=== PATIENT | male | born 1965 | race Caucasian/White ===

== ENCOUNTER 2018-07-18 15:40 | Inpatient (IN) | payer MEDICAID, OTHER ==
[~2018-07-18] VITALS: Ht 180.3 cm; Wt 127.9 kg
[~2018-07-18 15:40] MED LIST: METF-444 PO; RISP0.252 PO
[2018-07-18 16:16] LABS: BASOPHILS % (AUTO) 0.7 % (0.0-2.0); EOSINOPHILS % (AUTO) 1.4 % (1.0-6.0); HEMATOCRIT 43.2 % (41-53); HEMOGLOBIN 15.1 g/dL (13.5-17.5); LYMPHOCYTES # (AUTO) 1.3 K/uL (1.0-4.8); LYMPHOCYTES % (AUTO) 11.5 % (22.0-44.0); MEAN CORPUSCULAR HEMOGLOBIN 29.1 pg (26.0-34.0); MEAN CORPUSCULAR HGB CONC 34.9 G/dL (31.0-37.0); MEAN CORPUSCULAR VOLUME 83 fL (80-100); MONOCYTES # (AUTO) 1.1 K/uL (0.1-1.0); MONOCYTES % (AUTO) 9.5 % (2.0-9.0); NEUTROPHILS # (AUTO) 8.8 K/uL (1.8-7.7); NEUTROPHILS % (AUTO) 76.9 % (40.0-70.0); PLATELET COUNT (AUTO) 245 K/uL (150-450); RED BLOOD CELL COUNT(AUTO) 5.18 MIL/uL (4.50-5.90); RED CELL DISTRIBUTION WIDTH 13.2 % (11.5-14.5)
[2018-07-18 16:25] LABS: ANION GAP 8 mmol/L (8-16); CALCIUM, TOTAL 8.8 mg/dL (8.8-10.5); CARBON DIOXIDE 26 mmol/L (22-29); CHLORIDE 95 mmol/L (98-107); CREATININE 0.97 mg/dL (0.60-1.30); GLOMERULAR FILTR. RATE CALC > 60 mL/min (>60); GLUCOSE,RANDOM 220 mg/dL (70-110); POTASSIUM 3.9 mmol/L (3.5-5.1); SODIUM SERUM 129 mmol/L (136-145); UREA NITROGEN, BLOOD 11 mg/dL (7-18)
[2018-07-18 16:30] LABS: ALANINE AMINOTRANSFERASE 67 U/L (12-78); ALBUMIN 3.8 g/dL (3.4-5.0); ALKALINE PHOSPHATASE 87 U/L (46-116); ASPARTATE AMINOTRANSFERASE 26 U/L (15-37); BILIRUBIN,TOTAL 0.5 mg/dL (0.1-1.0); TOTAL PROTEIN, SERUM 7.6 g/dL (6.4-8.2)
[2018-07-18 17:10] LABS: AMPHET/METH SCREEN,URINE POSITIVE (NEGATIVE); BARBITURATE SCREEN, URINE NEGATIVE (NEGATIVE); BENZODIAZEPINES SCREEN,URINE NEGATIVE (NEGATIVE); CANNABINOID SCREEN,URINE NEGATIVE (NEGATIVE); COCAINE SCREEN,URINE NEGATIVE (NEGATIVE); METHADONE SCREEN, URINE NEGATIVE (NEGATIVE); OPIATE SCREEN,URINE NEGATIVE (NEGATIVE)
[2018-07-18 17:16] LABS: PHENCYCLIDINE SCREEN,URINE NEGATIVE (NEGATIVE)
[2018-07-18] MEDS ORDERED: OLANZapine 5 MG TABLET PO ONE (17:45)
[2018-07-18] MEDS ORDERED: LORazepam 2 MG TABLET PO ONE (17:45)
[2018-07-18] MEDS ORDERED: SODIUM CHLORIDE 1 GM TABLET PO ONE (17:45)
[2018-07-18 18:48] LABS: ANION GAP 10 mmol/L (8-16); CALCIUM, TOTAL 8.2 mg/dL (8.8-10.5); CARBON DIOXIDE 27 mmol/L (22-29); CHLORIDE 99 mmol/L (98-107); CREATININE 1.01 mg/dL (0.60-1.30); GLOMERULAR FILTR. RATE CALC > 60 mL/min (>60); GLUCOSE,RANDOM 238 mg/dL (70-110); POTASSIUM 3.7 mmol/L (3.5-5.1); SODIUM SERUM 136 mmol/L (136-145); UREA NITROGEN, BLOOD 12 mg/dL (7-18)
[2018-07-18] MEDS ORDERED: OLANZapine 5 MG RAPDIS TABLET PO PRN (19:30)
[2018-07-18] MEDS ORDERED: ZOLPIDEM TARTRATE 10 MG TABLET PO PRN (19:30)
[2018-07-18] MEDS ORDERED: LORazepam 2 MG TABLET PO PRN (19:30)
[2018-07-18] MEDS ORDERED: PETROLATUM,WHITE 71 GM JELLY TP PRN (21:15)
[2018-07-18] MEDS ORDERED: GuaiFENesin/D-METHORPHAN [SUGAR-FREE] 200-20MG/10 ML SYRUP UDCUP PO PRN (21:15)
[2018-07-18] MEDS ORDERED: ACETAMINOPHEN 325 MG TABLET PO PRN (21:15)
[2018-07-18] MEDS ORDERED: NICOTINE 14 MG/24 HOUR PATCH TD PRN (21:15)
[2018-07-18] MEDS ORDERED: IBUPROFEN 400 MG TABLET PO PRN (21:15)
[2018-07-18] MEDS ORDERED: DOCUSATE SODIUM 100 MG CAPSULE PO PRN (21:15)
[2018-07-18] MEDS ORDERED: ALBUTEROL SULFATE HFA 90 MCG/PUFF 8 GM INHALER IH PRN (21:15)
[2018-07-18] MEDS ORDERED: LOPERAMIDE HCL 2 MG CAPSULE PO PRN (21:15)
[2018-07-18] MEDS ORDERED: ONDANSETRON HCL 4 MG TABLET PO PRN (21:15)
[2018-07-18] MEDS ORDERED: MAG HYDROX/AL HYDROX/SIMETH ES 30 ML SUSPENSION UDCUP PO PRN (21:15)
[2018-07-18] MEDS ORDERED: CloNIDine HCL 0.1 MG TABLET PO PRN (21:15)
[2018-07-18 21:46] VITALS: BP 137/74
[2018-07-18] MEDS: MetFORMIN HCL 500 MG TABLET PO SCH (21:52)
[2018-07-18 21:58] VITALS: BP 137/74
[2018-07-18] MEDS ORDERED: PNEUMOCOCCAL VACCINE POLYVALENT 0.5 ML VIAL [PPSV23] IM ONE (23:00)
[2018-07-19 06:32] LABS: HEMOGLOBIN A1C 9.1 % (4.5-6.2)
[2018-07-19] MEDS: MetFORMIN HCL 500 MG TABLET PO SCH ×2 (06:51→17:51)
[2018-07-19 07:19] LABS: ALANINE AMINOTRANSFERASE 49 U/L (12-78); ALBUMIN 2.9 g/dL (3.4-5.0); ALKALINE PHOSPHATASE 69 U/L (46-116); ANION GAP 6 mmol/L (8-16); ASPARTATE AMINOTRANSFERASE 20 U/L (15-37); CALCIUM, TOTAL 8.1 mg/dL (8.8-10.5); CARBON DIOXIDE 28 mmol/L (22-29); CHLORIDE 101 mmol/L (98-107); CHOL/HDL RATIO 4.4 (4.2-7.3); CHOLESTEROL 169 mg/dL (131-200); CREATININE 0.91 mg/dL (0.60-1.30); GLOMERULAR FILTR. RATE CALC > 60 mL/min (>60); GLUCOSE,RANDOM 200 mg/dL (70-110); HDL CHOLESTEROL 38 mg/dL (40-60); LDL CHOL (CALC.) 86 mg/dL (0-130); POTASSIUM 3.8 mmol/L (3.5-5.1); SODIUM SERUM 135 mmol/L (136-145); THYROID STIMULATING HORMONE 3.67 uIU/mL (0.36-3.74); TOTAL PROTEIN, SERUM 6.1 g/dL (6.4-8.2); TRIGLYCERIDES 224 mg/dL (15-150); UREA NITROGEN, BLOOD 13 mg/dL (7-18)
[2018-07-19 07:37] LABS: BILIRUBIN,TOTAL 0.5 mg/dL (0.1-1.0)
[2018-07-19 09:08] VITALS: BP 159/100
[2018-07-19] MEDS: ARIPiprazole 10 MG TABLET PO SCH (13:06)
[2018-07-19 14:36] LABS: GLUCOMETER DEV NAME(LOC) 3EI C; GLUCOSE,POINT OF CARE 246 MG/DL (70-110)
[2018-07-19] MEDS: HYPROMELLOSE 0.5% 15 ML OPHTHALMIC SOLUTION OU SCH (17:51)
[2018-07-19 20:00] VITALS: BP 140/65
[2018-07-19] MEDS: MAGNESIUM HYDROXIDE SUSPENSION 30 ML UDCUP PO PRN (20:25)
[2018-07-20] MEDS: MetFORMIN HCL 500 MG TABLET PO SCH ×2 (07:03→16:39)
[2018-07-20] MEDS: AmLODIPine BESYLATE 2.5 MG TABLET PO SCH (09:59)
[2018-07-20] MEDS: HYPROMELLOSE 0.5% 15 ML OPHTHALMIC SOLUTION OU SCH ×2 (09:59→16:39)
[2018-07-20] MEDS: ARIPiprazole 10 MG TABLET PO SCH (09:59)
[2018-07-20 10:08] VITALS: BP 161/98
[2018-07-20 20:21] VITALS: BP 145/78
[2018-07-21] MEDS: MetFORMIN HCL 500 MG TABLET PO SCH ×2 (06:49→16:31)
[2018-07-21 08:05] VITALS: BP 144/67
[2018-07-21 09:54] LABS: GLUCOSE,POINT OF CARE 199 MG/DL (70-110)
[2018-07-21] MEDS: ARIPiprazole 10 MG TABLET PO SCH (10:29)
[2018-07-21] MEDS: AmLODIPine BESYLATE 2.5 MG TABLET PO SCH (10:29)
[2018-07-21] MEDS: HYPROMELLOSE 0.5% 15 ML OPHTHALMIC SOLUTION OU SCH ×2 (10:30→16:31)
[2018-07-21] MEDS: MAGNESIUM HYDROXIDE SUSPENSION 30 ML UDCUP PO PRN (16:32)
[2018-07-21 17:18] VITALS: BP 145/95
[2018-07-22 05:56] VITALS: BP 143/85
[2018-07-22] MEDS ORDERED: HYPROMELLOSE 0.5% 15 ML OPHTHALMIC SOLUTION OU PRN (06:30)
[2018-07-22] MEDS: MetFORMIN HCL 500 MG TABLET PO SCH (07:07)
[2018-07-22] MEDS: ARIPiprazole 10 MG TABLET PO SCH (09:49)
[2018-07-22] MEDS: AmLODIPine BESYLATE 2.5 MG TABLET PO SCH (09:49)
[2018-07-22] MEDS ORDERED: ARIP10TA8 PO (13:33)
[2018-07-22] MEDS ORDERED: AMLO2.5T3 PO (13:34)
== END 2018-07-22 16:10 | disposition home or self-care (01) | DRG 750 ==
LOC: EMS 15:41 → 3EI 19:30
DX: F20.0 Paranoid schizophrenia (principal); E87.1 Hypo-osmolality and hyponatremia; R45.851 Suicidal ideations; F10.10 Alcohol abuse, uncomplicated; E78.5 Hyperlipidemia, unspecified; I10 Essential (primary) hypertension; F19.10 Other psychoactive substance abuse, uncomplicated; F15.10 Other stimulant abuse, uncomplicated; E11.9 Type 2 diabetes mellitus without complications; Z87.891 Personal history of nicotine dependence; Z59.0 Homelessness; Z91.5 Personal history of self-harm; Z71.41 Alcohol abuse counseling and surveillance of alcoholic; Z71.51 Drug abuse counseling and surveillance of drug abuser
CPT/HCPCS: 83036; 84443; 99285; G0480

== ENCOUNTER 2018-10-27 16:04 | Inpatient (IN) | payer MEDICAID, SELFPAY ==
[~2018-10-27] VITALS: Ht 180.3 cm; Wt 132.9 kg
[~2018-10-27 16:04] MED LIST changes: +AMLO2.5T4 PO; +ARIP10TA8 PO; -RISP0.252 PO
[2018-10-27] MEDS ORDERED: LISI-662 PO (16:13)
[2018-10-27] MEDS ORDERED: INSLAN SQ (16:13)
[2018-10-27 16:57] LABS: BASOPHILS % (AUTO) 1.1 % (0.0-2.0); EOSINOPHILS % (AUTO) 5.3 % (1.0-6.0); HEMOGLOBIN 14.1 g/dL (13.5-17.5); LYMPHOCYTES # (AUTO) 1.1 K/uL (1.0-4.8); LYMPHOCYTES % (AUTO) 14.7 % (22.0-44.0); MEAN CORPUSCULAR HEMOGLOBIN 28.6 pg (26.0-34.0); MEAN CORPUSCULAR HGB CONC 34.5 G/dL (31.0-37.0); MEAN CORPUSCULAR VOLUME 83 fL (80-100); MONOCYTES # (AUTO) 0.8 K/uL (0.1-1.0); MONOCYTES % (AUTO) 9.7 % (2.0-9.0); NEUTROPHILS # (AUTO) 5.4 K/uL (1.8-7.7); NEUTROPHILS % (AUTO) 69.2 % (40.0-70.0); PLATELET COUNT (AUTO) 215 K/uL (150-450); RED BLOOD CELL COUNT(AUTO) 4.93 MIL/uL (4.50-5.90); RED CELL DISTRIBUTION WIDTH 13.8 % (11.5-14.5)
[2018-10-27 17:07] LABS: ANION GAP 5 mmol/L (8-16); CALCIUM, TOTAL 8.9 mg/dL (8.8-10.5); CARBON DIOXIDE 31 mmol/L (22-29); CHLORIDE 100 mmol/L (98-107); GLOMERULAR FILTR. RATE CALC > 60 mL/min (>60); GLUCOSE,RANDOM 169 mg/dL (70-110); SODIUM SERUM 136 mmol/L (136-145); UREA NITROGEN, BLOOD 11 mg/dL (7-18)
[2018-10-27 17:13] LABS: ALANINE AMINOTRANSFERASE 56 U/L (12-78); ALBUMIN 3.6 g/dL (3.4-5.0); ALKALINE PHOSPHATASE 57 U/L (46-116); ASPARTATE AMINOTRANSFERASE 23 U/L (15-37); BILIRUBIN,TOTAL 0.4 mg/dL (0.1-1.0); TOTAL PROTEIN, SERUM 6.9 g/dL (6.4-8.2)
[2018-10-27 18:17] LABS: AMPHET/METH SCREEN,URINE NEGATIVE (NEGATIVE); BARBITURATE SCREEN, URINE NEGATIVE (NEGATIVE); BENZODIAZEPINES SCREEN,URINE NEGATIVE (NEGATIVE); CANNABINOID SCREEN,URINE NEGATIVE (NEGATIVE); COCAINE SCREEN,URINE NEGATIVE (NEGATIVE); METHADONE SCREEN, URINE NEGATIVE (NEGATIVE); OPIATE SCREEN,URINE NEGATIVE (NEGATIVE)
[2018-10-27 18:20] LABS: PHENCYCLIDINE SCREEN,URINE NEGATIVE (NEGATIVE)
[2018-10-27] MEDS ORDERED: HALOPERIDOL 5 MG TABLET PO ONE (23:15)
[2018-10-27] MEDS ORDERED: LORazepam 2 MG TABLET PO ONE (23:15)
[2018-10-27] MEDS ORDERED: DiphenhydrAMINE HCL 25 MG CAPSULE PO ONE (23:15)
[2018-10-27] MEDS ORDERED: LORazepam 2 MG TABLET PO PRN (23:30)
[2018-10-27] MEDS ORDERED: ZOLPIDEM TARTRATE 10 MG TABLET PO PRN (23:30)
[2018-10-27] MEDS ORDERED: HALOPERIDOL 5 MG TABLET PO PRN (23:30)
[2018-10-28 02:45] VITALS: BP 162/91
[2018-10-28 09:18] LABS: CHOL/HDL RATIO 3.1 (4.2-7.3); CHOLESTEROL 159 mg/dL (131-200); FREE T4 (FREE THYROXINE) 0.89 ng/dL (0.76-1.46); HDL CHOLESTEROL 51 mg/dL (40-60); LDL CHOL (CALC.) 81 mg/dL (0-130); TRIGLYCERIDES 137 mg/dL (15-150)
[2018-10-28 09:33] LABS: HEMOGLOBIN A1C 9.2 % (4.5-6.2)
[2018-10-28] MEDS ORDERED: HydrOXYzine PAMOATE 50 MG CAPSULE PO PRN (12:15)
[2018-10-28] MEDS ORDERED: MAG HYDROX/AL HYDROX/SIMETH ES 30 ML SUSPENSION UDCUP PO PRN (12:15)
[2018-10-28] MEDS ORDERED: MAGNESIUM HYDROXIDE SUSPENSION 30 ML UDCUP PO PRN (12:15)
[2018-10-28] MEDS ORDERED: OLANZapine 5 MG RAPDIS TABLET PO PRN (12:15)
[2018-10-28] MEDS ORDERED: TUBERCULIN, PURIFIED PROTEIN DERIVATIVE 5 TU/0.1 ML SYG ID ONE (12:15)
[2018-10-28] MEDS ORDERED: ACETAMINOPHEN 325 MG TABLET PO PRN (12:15)
[2018-10-28] MEDS ORDERED: GuaiFENesin/D-METHORPHAN [SUGAR-FREE] 200-20MG/10 ML SYRUP UDCUP PO PRN (12:15)
[2018-10-28] MEDS ORDERED: PROMETHAZINE HCL 25 MG TABLET PO PRN (12:15)
[2018-10-28] MEDS ORDERED: DEXTROSE 50%-WATER 25 GM/50 ML SYRINGE IVP PRN (13:00)
[2018-10-28] MEDS ORDERED: INSULIN GLARGINE,HUM.REC.ANLOG 100 UNITS/ML SQ ONE (13:00)
[2018-10-28] MEDS ORDERED: GLUCAGON,HUMAN RECOMBINANT 1 MG VIAL IM PRN (13:00)
[2018-10-28] MEDS ORDERED: INSULIN LISPRO 100 UNITS/ML SQ PRN (13:00)
[2018-10-28] MEDS: LISINOPRIL 10 MG TABLET PO SCH (13:47)
[2018-10-28 14:06] LABS: GLUCOMETER DEV NAME(LOC) 3E.C; GLUCOSE,POINT OF CARE 324 MG/DL (70-110)
[2018-10-28 14:46] VITALS: BP 116/56
[2018-10-28 15:54] LABS: GLUCOSE,POINT OF CARE 200 MG/DL (70-110)
[2018-10-28 16:00] VITALS: BP 119/69
[2018-10-28] MEDS: THIAMINE HCL 100 MG TABLET PO SCH (17:00)
[2018-10-28] MEDS: INSULIN LISPRO 100 UNITS/ML SQ PRN (19:02)
[2018-10-28] MEDS ORDERED: OLANZapine 5 MG RAPDIS TABLET PO SCH (21:00)
[2018-10-28] MEDS ORDERED: INSULIN GLARGINE,HUM.REC.ANLOG 100 UNITS/ML SQ SCH (21:00)
[2018-10-28] MEDS ORDERED: DIVALPROEX SODIUM 500 MG ER TABLET PO SCH (21:00)
[2018-10-28] MEDS: LOPERAMIDE HCL 2 MG CAPSULE PO PRN (21:03)
[2018-10-28] MEDS: HYPROMELLOSE 0.5% 15 ML OPHTHALMIC SOLUTION OU PRN (21:03)
[2018-10-29] MEDS: HYPROMELLOSE 0.5% 15 ML OPHTHALMIC SOLUTION OU PRN ×2 (02:32→05:51)
[2018-10-29 05:51] VITALS: BP 135/78
[2018-10-29] MEDS: LOPERAMIDE HCL 2 MG CAPSULE PO PRN (05:51)
[2018-10-29] MEDS: INSULIN LISPRO 100 UNITS/ML SQ PRN ×2 (06:31→11:42)
[2018-10-29] MEDS: THIAMINE HCL 100 MG TABLET PO SCH (08:48)
[2018-10-29] MEDS: LISINOPRIL 10 MG TABLET PO SCH (08:48)
[2018-10-29 08:52] LABS: GLUCOMETER DEV NAME(LOC) 3E.C; GLUCOSE,POINT OF CARE 262 MG/DL (70-110)
[2018-10-29 08:55] VITALS: BP 125/72
[2018-10-29 08:57] LABS: GLUCOMETER DEV NAME(LOC) 3E.C; GLUCOSE,POINT OF CARE 304 MG/DL (70-110)
[2018-10-29] MEDS ORDERED: FOLIC ACID 1 MG TABLET PO SCH (09:00)
[2018-10-29] MEDS ORDERED: MULTIVITAMINS WITH MINERALS, THERAPEUTIC TABLET PO SCH (09:00)
[2018-10-29] MEDS ORDERED: NALTREXONE HCL 50 MG TABLET PO SCH (09:00)
[2018-10-29 09:35] LABS: GLUCOMETER DEV NAME(LOC) 3E.C; GLUCOSE,POINT OF CARE 261 MG/DL (70-110)
[2018-10-29 11:44] LABS: GLUCOMETER DEV NAME(LOC) 3E.C; GLUCOSE,POINT OF CARE 264 MG/DL (70-110)
[2018-10-29] MEDS ORDERED: PALI117D IM (12:57)
[2018-10-29] MEDS ORDERED: DIVA500T52 PO (12:57)
[2018-10-29] MEDS ORDERED: NALT50TA PO (12:57)
[2018-10-29] MEDS ORDERED: PALIPERIDONE PALMITATE 234 MG/1.5 ML SYRINGE IM ONE (13:00)
[2018-10-29 16:19] LABS: GLUCOMETER DEV NAME(LOC) 3E.C; GLUCOSE,POINT OF CARE 344 MG/DL (70-110)
[2018-11-26] MEDS ORDERED: PALIPERIDONE PALMITATE 117 MG/0.75 ML SYRINGE IM SCH (09:00)
== END 2018-10-29 17:00 | disposition home or self-care (01) | DRG 750 ==
LOC: EMS 16:05 → 3EC 23:30
PROVIDERS: ADMIT Psychiatry & Neurology Psychiatry; ATTEND Psychiatry & Neurology Psychiatry
DX: F25.9 Schizoaffective disorder, unspecified (principal); R45.850 Homicidal ideations; E11.9 Type 2 diabetes mellitus without complications; I10 Essential (primary) hypertension; F12.90 Cannabis use, unspecified, uncomplicated; F17.210 Nicotine dependence, cigarettes, uncomplicated; H04.123 Dry eye syndrome of bilateral lacrimal glands; Z79.4 Long term (current) use of insulin; Z80.0 Family history of malignant neoplasm of digestive organs; Z80.1 Family history of malignant neoplasm of trachea, bronchus and lung; Z80.42 Family history of malignant neoplasm of prostate; Z82.49 Family history of ischemic heart disease and other diseases of the circulatory system; Z91.19 Patient's noncompliance with other medical treatment and regimen; Z59.0 Homelessness
CPT/HCPCS: 83036; 84436; 84439; 99406; G0480; J1815

== ENCOUNTER 2018-12-06 16:27 | Inpatient (IN) | payer MEDICAID ==
[~2018-12-06] VITALS: Ht 180.3 cm; Wt 125.6 kg
[~2018-12-06 16:27] MED LIST changes: -AMLO2.5T4 PO; -ARIP10TA8 PO; +DIVA500T52 PO; +INSLAN SQ; +LISI-662 PO; -METF-444 PO; +NALT50TA PO; +PALI117D IM
[2018-12-06 16:54] LABS: GLUCOSE,POINT OF CARE 472 MG/DL (70-110)
[2018-12-06 20:09] LABS: GLUCOSE,POINT OF CARE 436 MG/DL (70-110)
[2018-12-06 21:05] LABS: EOSINOPHILS % (AUTO) 3.8 % (1.0-6.0); HEMATOCRIT 41.9 % (41-53); HEMOGLOBIN 14.8 g/dL (13.5-17.5); LYMPHOCYTES # (AUTO) 1.4 K/uL (1.0-4.8); LYMPHOCYTES % (AUTO) 18.2 % (22.0-44.0); MEAN CORPUSCULAR HEMOGLOBIN 29.2 pg (26.0-34.0); MEAN CORPUSCULAR HGB CONC 35.2 G/dL (31.0-37.0); MEAN CORPUSCULAR VOLUME 83 fL (80-100); MONOCYTES # (AUTO) 0.8 K/uL (0.1-1.0); MONOCYTES % (AUTO) 9.9 % (2.0-9.0); NEUTROPHILS # (AUTO) 5.2 K/uL (1.8-7.7); NEUTROPHILS % (AUTO) 67.1 % (40.0-70.0); PLATELET COUNT (AUTO) 217 K/uL (150-450); RED BLOOD CELL COUNT(AUTO) 5.06 MIL/uL (4.50-5.90); RED CELL DISTRIBUTION WIDTH 13.7 % (11.5-14.5)
[2018-12-06] MEDS ORDERED: INSULIN REGULAR, HUMAN 100 UNITS/ML SQ ONE (21:15)
[2018-12-06 21:22] LABS: ANION GAP 13 mmol/L (8-16); CALCIUM, TOTAL 9.3 mg/dL (8.8-10.5); CARBON DIOXIDE 26 mmol/L (22-29); CHLORIDE 95 mmol/L (98-107); CREATININE 0.99 mg/dL (0.60-1.30); GLOMERULAR FILTR. RATE CALC > 60 mL/min (>60); GLUCOSE,RANDOM 365 mg/dL (70-110); POTASSIUM 4.3 mmol/L (3.5-5.1); SODIUM SERUM 134 mmol/L (136-145); UREA NITROGEN, BLOOD 12 mg/dL (7-18)
[2018-12-06 21:26] LABS: ALANINE AMINOTRANSFERASE 66 U/L (12-78); ALBUMIN 3.9 g/dL (3.4-5.0); ALKALINE PHOSPHATASE 73 U/L (46-116); ASPARTATE AMINOTRANSFERASE 22 U/L (15-37); BILIRUBIN,TOTAL 0.6 mg/dL (0.1-1.0); TOTAL PROTEIN, SERUM 7.4 g/dL (6.4-8.2)
[2018-12-06 22:42] LABS: APPEARANCE,URINE CLEAR (CLEAR); BILIRUBIN,URINE NEGATIVE (NEGATIVE); GLUCOSE, URINE (UA) >=1000 mg/dL (NEGATIVE); KETONES,URINE NEGATIVE (NEGATIVE); LEUKOCYTE ESTERASE ,URINE NEGATIVE (NEGATIVE); NITRATE,URINE NEGATIVE (NEGATIVE); OCCULT BLOOD,URINE NEGATIVE (NEGATIVE); PH,URINE 5.5 (5.0-8.0); PROTEIN,URINE NEGATIVE (NEGATIVE); UROBILINOGEN,URINE 0.2 mg/dL (<=1.0)
[2018-12-06 22:49] LABS: BACTERIA,URINE None Seen /HPF (None Seen); RBC,URINE None Seen /HPF (0-2); SQUAMOUS EPITHELIAL CELL,UR None Seen /LPF (None Seen); WBC,URINE None Seen /HPF (0-5)
[2018-12-06 23:13] LABS: GLUCOSE,POINT OF CARE 264 MG/DL (70-110)
[2018-12-07] MEDS ORDERED: LORazepam 2 MG TABLET PO ONE (07:45)
[2018-12-07] MEDS ORDERED: DiphenhydrAMINE HCL 25 MG CAPSULE PO ONE (07:45)
[2018-12-07] MEDS ORDERED: HALOPERIDOL 5 MG TABLET PO ONE (07:45)
[2018-12-07] MEDS ORDERED: INSULIN REGULAR, HUMAN 100 UNITS/ML SQ ONE (08:00)
[2018-12-07 09:20] VITALS: BP 149/89
[2018-12-07 09:25] LABS: VALPROIC ACID < 3 mcg/mL (50-100)
[2018-12-07] MEDS ORDERED: ZOLPIDEM TARTRATE 10 MG TABLET PO PRN (09:45)
[2018-12-07] MEDS ORDERED: LORazepam 2 MG TABLET PO PRN (09:45)
[2018-12-07] MEDS ORDERED: QUEtiapine FUMARATE 100 MG TABLET PO PRN (09:45)
[2018-12-07] MEDS ORDERED: CloNIDine HCL 0.1 MG TABLET PO PRN ×2 (10:00→18:00)
[2018-12-07] MEDS ORDERED: GuaiFENesin/D-METHORPHAN [SUGAR-FREE] 200-20MG/10 ML SYRUP UDCUP PO PRN ×2 (10:00→18:00)
[2018-12-07] MEDS ORDERED: NICOTINE 14 MG/24 HOUR PATCH TD PRN ×2 (10:00→18:00)
[2018-12-07] MEDS ORDERED: LOPERAMIDE HCL 2 MG CAPSULE PO PRN ×2 (10:00→18:00)
[2018-12-07] MEDS ORDERED: MAGNESIUM HYDROXIDE SUSPENSION 30 ML UDCUP PO PRN ×2 (10:00→18:00)
[2018-12-07] MEDS ORDERED: ONDANSETRON HCL 4 MG TABLET PO PRN ×2 (10:00→18:00)
[2018-12-07] MEDS ORDERED: PETROLATUM,WHITE 71 GM JELLY TP PRN ×2 (10:00→18:00)
[2018-12-07] MEDS ORDERED: ALBUTEROL SULFATE HFA 90 MCG/PUFF 8 GM INHALER IH PRN ×2 (10:00→18:00)
[2018-12-07] MEDS ORDERED: MAG HYDROX/AL HYDROX/SIMETH ES 30 ML SUSPENSION UDCUP PO PRN ×2 (10:00→18:00)
[2018-12-07] MEDS ORDERED: DOCUSATE SODIUM 100 MG CAPSULE PO PRN ×2 (10:00→18:00)
[2018-12-07] MEDS ORDERED: ACETAMINOPHEN 325 MG TABLET PO PRN ×2 (10:00→18:00)
[2018-12-07] MEDS ORDERED: LISINOPRIL 10 MG TABLET PO ONE (10:15)
[2018-12-07] MEDS ORDERED: LISI-661 PO (10:54)
[2018-12-07] MEDS ORDERED: PNEUMOCOCCAL VACCINE POLYVALENT 0.5 ML VIAL [PPSV23] IM ONE (11:00)
[2018-12-07 16:26] VITALS: BP 104/67
[2018-12-07] MEDS ORDERED: IBUPROFEN 400 MG TABLET PO PRN (18:00)
[2018-12-07] MEDS ORDERED: GLUCAGON,HUMAN RECOMBINANT 1 MG VIAL IM PRN (18:00)
[2018-12-07] MEDS: QUEtiapine FUMARATE 100 MG TABLET PO SCH (20:15)
[2018-12-07] MEDS: DIVALPROEX SODIUM 500 MG ER TABLET PO SCH (20:15)
[2018-12-07] MEDS: INSULIN GLARGINE,HUM.REC.ANLOG 100 UNITS/ML SQ SCH (20:19)
[2018-12-07] MEDS: INSULIN LISPRO 100 UNITS/ML SQ PRN (20:19)
[2018-12-07] MEDS ORDERED: INSULIN GLARGINE,HUM.REC.ANLOG 100 UNITS/ML SQ SCH (21:00)
[2018-12-07 22:43] LABS: GLUCOMETER DEV NAME(LOC) BV3N.; GLUCOSE,POINT OF CARE 387 MG/DL (70-110)
[2018-12-08 02:03] VITALS: BP 126/69
[2018-12-08] MEDS: MetFORMIN HCL 500 MG TABLET PO SCH ×2 (06:24→16:48)
[2018-12-08 06:28] LABS: GLUCOMETER DEV NAME(LOC) BV3N.; GLUCOSE,POINT OF CARE 261 MG/DL (70-110)
[2018-12-08] MEDS: INSULIN LISPRO 100 UNITS/ML SQ PRN ×4 (06:42→21:12)
[2018-12-08 07:25] LABS: BASOPHILS % (AUTO) 0.9 % (0.0-2.0); EOSINOPHILS % (AUTO) 4.6 % (1.0-6.0); HEMATOCRIT 40.1 % (41-53); HEMOGLOBIN 14.2 g/dL (13.5-17.5); LYMPHOCYTES # (AUTO) 1.2 K/uL (1.0-4.8); LYMPHOCYTES % (AUTO) 20.9 % (22.0-44.0); MEAN CORPUSCULAR HGB CONC 35.5 G/dL (31.0-37.0); MEAN CORPUSCULAR VOLUME 82 fL (80-100); MONOCYTES # (AUTO) 0.6 K/uL (0.1-1.0); MONOCYTES % (AUTO) 9.6 % (2.0-9.0); NEUTROPHILS # (AUTO) 3.7 K/uL (1.8-7.7); PLATELET COUNT (AUTO) 168 K/uL (150-450); RED BLOOD CELL COUNT(AUTO) 4.91 MIL/uL (4.50-5.90); RED CELL DISTRIBUTION WIDTH 13.3 % (11.5-14.5)
[2018-12-08 07:37] LABS: HEMOGLOBIN A1C 9.4 % (4.5-6.2)
[2018-12-08 07:55] LABS: ALANINE AMINOTRANSFERASE 59 U/L (12-78); ALBUMIN 3.1 g/dL (3.4-5.0); ALKALINE PHOSPHATASE 61 U/L (46-116); ANION GAP 6 mmol/L (8-16); ASPARTATE AMINOTRANSFERASE 30 U/L (15-37); BILIRUBIN,TOTAL 0.4 mg/dL (0.1-1.0); CALCIUM, TOTAL 8.4 mg/dL (8.8-10.5); CARBON DIOXIDE 30 mmol/L (22-29); CHLORIDE 100 mmol/L (98-107); CHOL/HDL RATIO 3.4 (4.2-7.3); CHOLESTEROL 150 mg/dL (131-200); CREATININE 0.98 mg/dL (0.60-1.30); FREE T4 (FREE THYROXINE) 1.06 ng/dL (0.76-1.46); GLOMERULAR FILTR. RATE CALC > 60 mL/min (>60); GLUCOSE,RANDOM 267 mg/dL (70-110); HDL CHOLESTEROL 44 mg/dL (40-60); LDL CHOL (CALC.) 66 mg/dL (0-130); SODIUM SERUM 136 mmol/L (136-145); THYROID STIMULATING HORMONE 1.53 uIU/mL (0.36-3.74); TOTAL PROTEIN, SERUM 6.4 g/dL (6.4-8.2); TRIGLYCERIDES 198 mg/dL (15-150); UREA NITROGEN, BLOOD 14 mg/dL (7-18)
[2018-12-08] MEDS: NICOTINE 14 MG/24 HOUR PATCH TD SCH (08:16)
[2018-12-08 08:20] VITALS: BP 136/65
[2018-12-08 11:59] LABS: GLUCOMETER DEV NAME(LOC) BV3N.; GLUCOSE,POINT OF CARE 292 MG/DL (70-110)
[2018-12-08 16:00] VITALS: BP 125/76
[2018-12-08 16:58] LABS: GLUCOMETER DEV NAME(LOC) BV3N.; GLUCOSE,POINT OF CARE 344 MG/DL (70-110)
[2018-12-08] MEDS: QUEtiapine FUMARATE 100 MG TABLET PO SCH (21:00)
[2018-12-08] MEDS: DIVALPROEX SODIUM 500 MG ER TABLET PO SCH (21:00)
[2018-12-08 21:09] LABS: GLUCOMETER DEV NAME(LOC) BV3N.; GLUCOSE,POINT OF CARE 287 MG/DL (70-110)
[2018-12-08] MEDS: INSULIN GLARGINE,HUM.REC.ANLOG 100 UNITS/ML SQ SCH (21:12)
[2018-12-09] MEDS: HYPROMELLOSE 0.5% 15 ML OPHTHALMIC SOLUTION OU PRN ×3 (02:46→16:08)
[2018-12-09 03:38] VITALS: BP 124/87
[2018-12-09 06:29] LABS: GLUCOMETER DEV NAME(LOC) BV3N.; GLUCOSE,POINT OF CARE 218 MG/DL (70-110)
[2018-12-09] MEDS: MetFORMIN HCL 500 MG TABLET PO SCH ×2 (06:37→16:07)
[2018-12-09] MEDS: INSULIN LISPRO 100 UNITS/ML SQ PRN ×4 (06:47→21:00)
[2018-12-09 08:08] VITALS: BP 136/67
[2018-12-09] MEDS: NICOTINE 14 MG/24 HOUR PATCH TD SCH (08:32)
[2018-12-09 11:34] LABS: GLUCOMETER DEV NAME(LOC) BV3N.; GLUCOSE,POINT OF CARE 257 MG/DL (70-110)
[2018-12-09 11:42] VITALS: BP 140/82
[2018-12-09] MEDS: IBUPROFEN 400 MG TABLET PO PRN (11:42)
[2018-12-09 15:48] LABS: GLUCOMETER DEV NAME(LOC) BV3N.; GLUCOSE,POINT OF CARE 284 MG/DL (70-110)
[2018-12-09 16:28] VITALS: BP 139/75
[2018-12-09] MEDS: DIVALPROEX SODIUM 500 MG ER TABLET PO SCH (21:00)
[2018-12-09] MEDS: QUEtiapine FUMARATE 100 MG TABLET PO SCH (21:00)
[2018-12-09] MEDS: INSULIN GLARGINE,HUM.REC.ANLOG 100 UNITS/ML SQ SCH (21:00)
[2018-12-09 21:19] LABS: GLUCOMETER DEV NAME(LOC) BV3N.; GLUCOSE,POINT OF CARE 256 MG/DL (70-110)
[2018-12-10 02:56] VITALS: BP 118/64
[2018-12-10] MEDS: MetFORMIN HCL 500 MG TABLET PO SCH ×2 (06:52→16:43)
[2018-12-10] MEDS: INSULIN LISPRO 100 UNITS/ML SQ PRN ×4 (06:54→20:25)
[2018-12-10 07:09] LABS: GLUCOMETER DEV NAME(LOC) BV3N.; GLUCOSE,POINT OF CARE 215 MG/DL (70-110)
[2018-12-10] MEDS: NICOTINE 14 MG/24 HOUR PATCH TD SCH (08:11)
[2018-12-10 08:12] VITALS: BP 105/59
[2018-12-10 11:39] LABS: GLUCOMETER DEV NAME(LOC) BV3N.; GLUCOSE,POINT OF CARE 264 MG/DL (70-110)
[2018-12-10 16:08] VITALS: BP 127/68
[2018-12-10] MEDS: HYPROMELLOSE 0.5% 15 ML OPHTHALMIC SOLUTION OU PRN (16:43)
[2018-12-10 17:03] LABS: GLUCOMETER DEV NAME(LOC) BV3N.; GLUCOSE,POINT OF CARE 299 MG/DL (70-110)
[2018-12-10] MEDS: QUEtiapine FUMARATE 100 MG TABLET PO SCH (20:23)
[2018-12-10] MEDS: DIVALPROEX SODIUM 500 MG ER TABLET PO SCH (20:23)
[2018-12-10] MEDS: INSULIN GLARGINE,HUM.REC.ANLOG 100 UNITS/ML SQ SCH (20:25)
[2018-12-10 20:54] LABS: GLUCOMETER DEV NAME(LOC) BV3N.; GLUCOSE,POINT OF CARE 292 MG/DL (70-110)
[2018-12-11 00:28] VITALS: BP 129/89
[2018-12-11] MEDS: INSULIN LISPRO 100 UNITS/ML SQ PRN ×4 (06:28→20:32)
[2018-12-11 06:29] LABS: GLUCOMETER DEV NAME(LOC) BV3N.; GLUCOSE,POINT OF CARE 198 MG/DL (70-110)
[2018-12-11] MEDS: MetFORMIN HCL 500 MG TABLET PO SCH ×2 (06:37→16:53)
[2018-12-11 08:13] VITALS: BP 113/62
[2018-12-11] MEDS: NICOTINE 14 MG/24 HOUR PATCH TD SCH ×2 (09:00→09:20)
[2018-12-11 11:53] LABS: GLUCOMETER DEV NAME(LOC) BV3N.; GLUCOSE,POINT OF CARE 276 MG/DL (70-110)
[2018-12-11] MEDS: HYPROMELLOSE 0.5% 15 ML OPHTHALMIC SOLUTION OU PRN (12:08)
[2018-12-11] MEDS: IBUPROFEN 400 MG TABLET PO PRN ×2 (13:15→13:51)
[2018-12-11 13:51] VITALS: BP 126/60
[2018-12-11 16:18] VITALS: BP 121/67
[2018-12-11 17:08] LABS: GLUCOMETER DEV NAME(LOC) BV3N.; GLUCOSE,POINT OF CARE 306 MG/DL (70-110)
[2018-12-11] MEDS: DIVALPROEX SODIUM 500 MG ER TABLET PO SCH (20:31)
[2018-12-11] MEDS: INSULIN GLARGINE,HUM.REC.ANLOG 100 UNITS/ML SQ SCH (20:32)
[2018-12-11 20:58] LABS: GLUCOMETER DEV NAME(LOC) BV3N.; GLUCOSE,POINT OF CARE 257 MG/DL (70-110)
[2018-12-11] MEDS ORDERED: ARIPiprazole 10 MG TABLET PO SCH (21:00)
[2018-12-12] MEDS: HYPROMELLOSE 0.5% 15 ML OPHTHALMIC SOLUTION OU PRN (05:15)
[2018-12-12 06:16] VITALS: BP 121/69
[2018-12-12 06:24] LABS: GLUCOMETER DEV NAME(LOC) BV3N.; GLUCOSE,POINT OF CARE 251 MG/DL (70-110)
[2018-12-12] MEDS: MetFORMIN HCL 500 MG TABLET PO SCH (06:28)
[2018-12-12] MEDS: INSULIN LISPRO 100 UNITS/ML SQ PRN ×2 (06:38→11:30)
[2018-12-12 08:00] VITALS: BP 135/67
[2018-12-12] MEDS: NICOTINE 14 MG/24 HOUR PATCH TD SCH (08:22)
[2018-12-12 11:43] LABS: GLUCOMETER DEV NAME(LOC) BV3N.; GLUCOSE,POINT OF CARE 256 MG/DL (70-110)
[2018-12-12] MEDS ORDERED: INSULIN GLARGINE,HUM.REC.ANLOG 100 UNITS/ML SQ SCH (21:00)
== END 2018-12-12 13:30 | disposition home or self-care (01) | DRG 750 ==
LOC: EMS 16:27 → B3A 12-07 06:11
DX: F25.9 Schizoaffective disorder, unspecified (principal); E11.65 Type 2 diabetes mellitus with hyperglycemia; R45.851 Suicidal ideations; F17.210 Nicotine dependence, cigarettes, uncomplicated; F32.9 Major depressive disorder, single episode, unspecified; F41.9 Anxiety disorder, unspecified; F60.9 Personality disorder, unspecified; I10 Essential (primary) hypertension; Z79.899 Other long term (current) drug therapy; Z91.14 Patient's other noncompliance with medication regimen; Z91.5 Personal history of self-harm; Z71.6 Tobacco abuse counseling
CPT/HCPCS: 83036; 84439; 84443; 96372; G0480; J1815

== ENCOUNTER 2018-12-15 12:54 | Inpatient (IN) | payer MEDICAID ==
[~2018-12-15] VITALS: Ht 180.3 cm; Wt 128.3 kg
[~2018-12-15 12:54] MED LIST changes: -INSLAN SQ; +LISI-661 PO; -LISI-662 PO; -PALI117D IM
[2018-12-15 15:08] LABS: BASOPHILS % (AUTO) 0.9 % (0.0-2.0); EOSINOPHILS % (AUTO) 2.6 % (1.0-6.0); HEMATOCRIT 39.7 % (41-53); HEMOGLOBIN 14.3 g/dL (13.5-17.5); LYMPHOCYTES # (AUTO) 1.2 K/uL (1.0-4.8); LYMPHOCYTES % (AUTO) 14.4 % (22.0-44.0); MEAN CORPUSCULAR HEMOGLOBIN 29.4 pg (26.0-34.0); MEAN CORPUSCULAR HGB CONC 35.9 G/dL (31.0-37.0); MEAN CORPUSCULAR VOLUME 82 fL (80-100); MONOCYTES # (AUTO) 0.8 K/uL (0.1-1.0); MONOCYTES % (AUTO) 9.5 % (2.0-9.0); NEUTROPHILS # (AUTO) 6.2 K/uL (1.8-7.7); NEUTROPHILS % (AUTO) 72.6 % (40.0-70.0); PLATELET COUNT (AUTO) 185 K/uL (150-450); RED BLOOD CELL COUNT(AUTO) 4.85 MIL/uL (4.50-5.90); RED CELL DISTRIBUTION WIDTH 13.7 % (11.5-14.5)
[2018-12-15 15:22] LABS: ANION GAP 9 mmol/L (8-16); CALCIUM, TOTAL 9.1 mg/dL (8.8-10.5); CARBON DIOXIDE 27 mmol/L (22-29); CHLORIDE 95 mmol/L (98-107); CREATININE 1.05 mg/dL (0.60-1.30); GLOMERULAR FILTR. RATE CALC > 60 mL/min (>60); GLUCOSE,RANDOM 300 mg/dL (70-110); POTASSIUM 4.4 mmol/L (3.5-5.1); SODIUM SERUM 131 mmol/L (136-145); UREA NITROGEN, BLOOD 20 mg/dL (7-18)
[2018-12-15 15:28] LABS: ALANINE AMINOTRANSFERASE 76 U/L (12-78); ALBUMIN 3.6 g/dL (3.4-5.0); ALKALINE PHOSPHATASE 61 U/L (46-116); ASPARTATE AMINOTRANSFERASE 36 U/L (15-37); BILIRUBIN,TOTAL 0.5 mg/dL (0.1-1.0); TOTAL PROTEIN, SERUM 7.1 g/dL (6.4-8.2)
[2018-12-15 16:04] LABS: AMPHET/METH SCREEN,URINE NEGATIVE (NEGATIVE); BARBITURATE SCREEN, URINE NEGATIVE (NEGATIVE); BENZODIAZEPINES SCREEN,URINE NEGATIVE (NEGATIVE); CANNABINOID SCREEN,URINE NEGATIVE (NEGATIVE); COCAINE SCREEN,URINE NEGATIVE (NEGATIVE); METHADONE SCREEN, URINE NEGATIVE (NEGATIVE); OPIATE SCREEN,URINE NEGATIVE (NEGATIVE)
[2018-12-15 16:09] LABS: PHENCYCLIDINE SCREEN,URINE NEGATIVE (NEGATIVE)
[2018-12-15 16:16] LABS: APPEARANCE,URINE CLEAR (CLEAR); BILIRUBIN,URINE NEGATIVE (NEGATIVE); GLUCOSE, URINE (UA) >=1000 mg/dL (NEGATIVE); KETONES,URINE TRACE mg/dL (NEGATIVE); LEUKOCYTE ESTERASE ,URINE NEGATIVE (NEGATIVE); NITRATE,URINE NEGATIVE (NEGATIVE); OCCULT BLOOD,URINE NEGATIVE (NEGATIVE); PROTEIN,URINE NEGATIVE (NEGATIVE); UROBILINOGEN,URINE 0.2 mg/dL (<=1.0)
[2018-12-15 16:52] LABS: BACTERIA,URINE None Seen /HPF (None Seen); RBC,URINE None Seen /HPF (0-2); SQUAMOUS EPITHELIAL CELL,UR None Seen /LPF (None Seen); WBC,URINE None Seen /HPF (0-5)
[2018-12-15] MEDS ORDERED: ZOLPIDEM TARTRATE 10 MG TABLET PO PRN (17:15)
[2018-12-15] MEDS ORDERED: HALOPERIDOL 5 MG TABLET PO PRN (17:15)
[2018-12-15] MEDS ORDERED: LORazepam 2 MG TABLET PO PRN (17:15)
[2018-12-15 20:04] VITALS: BP 139/87
[2018-12-15 20:33] LABS: GLUCOMETER DEV NAME(LOC) BV2X.; GLUCOSE,POINT OF CARE 362 MG/DL (70-110)
[2018-12-15] MEDS ORDERED: MAGNESIUM HYDROXIDE SUSPENSION 30 ML UDCUP PO PRN (21:30)
[2018-12-15] MEDS ORDERED: GuaiFENesin/D-METHORPHAN [SUGAR-FREE] 200-20MG/10 ML SYRUP UDCUP PO PRN (21:30)
[2018-12-15] MEDS ORDERED: LOPERAMIDE HCL 2 MG CAPSULE PO PRN (21:30)
[2018-12-15] MEDS ORDERED: GLUCAGON,HUMAN RECOMBINANT 1 MG VIAL IM PRN (21:30)
[2018-12-15] MEDS ORDERED: CloNIDine HCL 0.1 MG TABLET PO PRN (21:30)
[2018-12-15] MEDS ORDERED: ACETAMINOPHEN 325 MG TABLET PO PRN (21:30)
[2018-12-15] MEDS ORDERED: ONDANSETRON HCL 4 MG TABLET PO PRN (21:30)
[2018-12-15] MEDS ORDERED: MAG HYDROX/AL HYDROX/SIMETH ES 30 ML SUSPENSION UDCUP PO PRN (21:30)
[2018-12-15] MEDS ORDERED: ALBUTEROL SULFATE HFA 90 MCG/PUFF 8 GM INHALER IH PRN (21:30)
[2018-12-15] MEDS ORDERED: DOCUSATE SODIUM 100 MG CAPSULE PO PRN (21:30)
[2018-12-15] MEDS ORDERED: IBUPROFEN 400 MG TABLET PO PRN (21:30)
[2018-12-15] MEDS ORDERED: PETROLATUM,WHITE 71 GM JELLY TP PRN (21:30)
[2018-12-15] MEDS ORDERED: NICOTINE 14 MG/24 HOUR PATCH TD PRN (21:30)
[2018-12-15] MEDS: INSULIN LISPRO 100 UNITS/ML SQ PRN (21:47)
[2018-12-16 04:15] VITALS: BP 127/89
[2018-12-16 06:09] LABS: GLUCOMETER DEV NAME(LOC) BV2X.; GLUCOSE,POINT OF CARE 302 MG/DL (70-110)
[2018-12-16] MEDS: MetFORMIN HCL 500 MG TABLET PO SCH ×2 (06:09→16:18)
[2018-12-16] MEDS: INSULIN LISPRO 100 UNITS/ML SQ PRN ×4 (06:11→22:15)
[2018-12-16 08:18] VITALS: BP 116/60
[2018-12-16 08:52] LABS: BASOPHILS % (AUTO) 0.8 % (0.0-2.0); EOSINOPHILS % (AUTO) 3.9 % (1.0-6.0); HEMATOCRIT 38.9 % (41-53); HEMOGLOBIN 13.7 g/dL (13.5-17.5); LYMPHOCYTES # (AUTO) 1.1 K/uL (1.0-4.8); LYMPHOCYTES % (AUTO) 18.3 % (22.0-44.0); MEAN CORPUSCULAR HEMOGLOBIN 28.9 pg (26.0-34.0); MEAN CORPUSCULAR HGB CONC 35.1 G/dL (31.0-37.0); MEAN CORPUSCULAR VOLUME 82 fL (80-100); MONOCYTES # (AUTO) 0.7 K/uL (0.1-1.0); MONOCYTES % (AUTO) 11.8 % (2.0-9.0); NEUTROPHILS # (AUTO) 3.8 K/uL (1.8-7.7); NEUTROPHILS % (AUTO) 65.2 % (40.0-70.0); PLATELET COUNT (AUTO) 161 K/uL (150-450); RED BLOOD CELL COUNT(AUTO) 4.73 MIL/uL (4.50-5.90); RED CELL DISTRIBUTION WIDTH 13.7 % (11.5-14.5)
[2018-12-16 09:11] LABS: HEMOGLOBIN A1C 9.5 % (4.5-6.2)
[2018-12-16 09:47] LABS: ALANINE AMINOTRANSFERASE 56 U/L (12-78); ALKALINE PHOSPHATASE 54 U/L (46-116); ANION GAP 6 mmol/L (8-16); ASPARTATE AMINOTRANSFERASE 19 U/L (15-37); BILIRUBIN,TOTAL 0.4 mg/dL (0.1-1.0); CALCIUM, TOTAL 8.5 mg/dL (8.8-10.5); CARBON DIOXIDE 28 mmol/L (22-29); CHLORIDE 98 mmol/L (98-107); CHOL/HDL RATIO 3.9 (4.2-7.3); CHOLESTEROL 173 mg/dL (131-200); CREATININE 0.88 mg/dL (0.60-1.30); GLOMERULAR FILTR. RATE CALC > 60 mL/min (>60); GLUCOSE,RANDOM 297 mg/dL (70-110); HDL CHOLESTEROL 44 mg/dL (40-60); LDL CHOL (CALC.) 99 mg/dL (0-130); POTASSIUM 4.5 mmol/L (3.5-5.1); SODIUM SERUM 132 mmol/L (136-145); THYROID STIMULATING HORMONE 2.52 uIU/mL (0.36-3.74); TOTAL PROTEIN, SERUM 5.8 g/dL (6.4-8.2); TRIGLYCERIDES 152 mg/dL (15-150); UREA NITROGEN, BLOOD 18 mg/dL (7-18)
[2018-12-16 11:24] LABS: GLUCOMETER DEV NAME(LOC) BV2X.; GLUCOSE,POINT OF CARE 334 MG/DL (70-110)
[2018-12-16 16:00] VITALS: BP 118/60
[2018-12-16 17:10] LABS: GLUCOMETER DEV NAME(LOC) BV2X.; GLUCOSE,POINT OF CARE 330 MG/DL (70-110)
[2018-12-16] MEDS: DIVALPROEX SODIUM 500 MG ER TABLET PO SCH ×2 (19:52→21:00)
[2018-12-16] MEDS: OLANZapine 10 MG TABLET PO SCH (19:52)
[2018-12-16] MEDS: INSULIN GLARGINE,HUM.REC.ANLOG 100 UNITS/ML SQ SCH (21:15)
[2018-12-16 21:44] LABS: GLUCOMETER DEV NAME(LOC) BV2X.; GLUCOSE,POINT OF CARE 351 MG/DL (70-110)
[2018-12-17 00:53] VITALS: BP 113/63
[2018-12-17 06:30] LABS: GLUCOMETER DEV NAME(LOC) BV2X.; GLUCOSE,POINT OF CARE 288 MG/DL (70-110)
[2018-12-17] MEDS: MetFORMIN HCL 500 MG TABLET PO SCH ×2 (07:29→16:46)
[2018-12-17] MEDS: INSULIN LISPRO 100 UNITS/ML SQ PRN ×4 (07:30→21:29)
[2018-12-17] MEDS: LISINOPRIL 10 MG TABLET PO SCH (08:31)
[2018-12-17] MEDS: NALTREXONE HCL 50 MG TABLET PO SCH (09:00)
[2018-12-17 09:08] VITALS: BP 118/64
[2018-12-17 11:03] LABS: GLUCOMETER DEV NAME(LOC) BV2X.; GLUCOSE,POINT OF CARE 359 MG/DL (70-110)
[2018-12-17 16:44] VITALS: BP 106/61
[2018-12-17 16:59] LABS: GLUCOMETER DEV NAME(LOC) BV2X.; GLUCOSE,POINT OF CARE 346 MG/DL (70-110)
[2018-12-17 18:20] VITALS: BP 116/71
[2018-12-17] MEDS: DIVALPROEX SODIUM 500 MG ER TABLET PO SCH (21:00)
[2018-12-17] MEDS: OLANZapine 10 MG TABLET PO SCH (21:19)
[2018-12-17] MEDS: INSULIN GLARGINE,HUM.REC.ANLOG 100 UNITS/ML SQ SCH (21:28)
[2018-12-17 22:54] LABS: GLUCOMETER DEV NAME(LOC) BV2S.; GLUCOSE,POINT OF CARE 301 MG/DL (70-110)
[2018-12-18 00:20] VITALS: BP 115/66
[2018-12-18] MEDS: MetFORMIN HCL 500 MG TABLET PO SCH ×2 (06:47→16:10)
[2018-12-18] MEDS: INSULIN LISPRO 100 UNITS/ML SQ PRN ×4 (06:54→20:53)
[2018-12-18 06:59] LABS: GLUCOMETER DEV NAME(LOC) BV2X.; GLUCOSE,POINT OF CARE 246 MG/DL (70-110)
[2018-12-18 08:32] VITALS: BP 119/81
[2018-12-18] MEDS: LISINOPRIL 10 MG TABLET PO SCH (08:32)
[2018-12-18 08:52] LABS: ANION GAP 6 mmol/L (8-16); CALCIUM, TOTAL 8.6 mg/dL (8.8-10.5); CARBON DIOXIDE 29 mmol/L (22-29); CHLORIDE 99 mmol/L (98-107); CREATININE 0.76 mg/dL (0.60-1.30); GLOMERULAR FILTR. RATE CALC > 60 mL/min (>60); GLUCOSE,RANDOM 260 mg/dL (70-110); POTASSIUM 4.3 mmol/L (3.5-5.1); SODIUM SERUM 134 mmol/L (136-145); UREA NITROGEN, BLOOD 16 mg/dL (7-18)
[2018-12-18] MEDS: NALTREXONE HCL 50 MG TABLET PO SCH (09:00)
[2018-12-18] MEDS ORDERED: OMEGA-3/DHA/EPA/FISH OIL 1,000 MG CAPSULE PO SCH (09:00)
[2018-12-18 14:49] LABS: GLUCOMETER DEV NAME(LOC) BV2X.; GLUCOSE,POINT OF CARE 279 MG/DL (70-110)
[2018-12-18 16:07] VITALS: BP 135/78
[2018-12-18 18:03] LABS: GLUCOMETER DEV NAME(LOC) BV2X.; GLUCOSE,POINT OF CARE 267 MG/DL (70-110)
[2018-12-18] MEDS: OLANZapine 10 MG TABLET PO SCH (20:41)
[2018-12-18] MEDS: DIVALPROEX SODIUM 500 MG ER TABLET PO SCH (20:41)
[2018-12-18] MEDS ORDERED: INSULIN GLARGINE,HUM.REC.ANLOG 100 UNITS/ML SQ SCH (21:00)
[2018-12-19 00:32] VITALS: BP 126/72
[2018-12-19 01:08] LABS: GLUCOMETER DEV NAME(LOC) BV2X.; GLUCOSE,POINT OF CARE 276 MG/DL (70-110)
[2018-12-19] MEDS ORDERED: OMEG-135 PO (05:25)
[2018-12-19] MEDS ORDERED: NALT50TA6 PO (05:25)
[2018-12-19] MEDS ORDERED: INSLAN SQ (05:25)
[2018-12-19] MEDS ORDERED: OLAN10TA3 PO (05:25)
[2018-12-19] MEDS ORDERED: LISI-661 PO (05:25)
[2018-12-19] MEDS ORDERED: DIVA500T52 PO (05:25)
[2018-12-19] MEDS ORDERED: METF-960 PO (05:25)
[2018-12-19] MEDS: MetFORMIN HCL 500 MG TABLET PO SCH (06:41)
[2018-12-19] MEDS: INSULIN LISPRO 100 UNITS/ML SQ PRN (06:42)
[2018-12-19 06:59] LABS: GLUCOMETER DEV NAME(LOC) BV2X.; GLUCOSE,POINT OF CARE 193 MG/DL (70-110)
== END 2018-12-19 07:15 | disposition home or self-care (01) | DRG 750 ==
LOC: EMS 12:55 → B2S 17:56 → UNDOADMIN 18:07
DX: F20.0 Paranoid schizophrenia (principal); R45.851 Suicidal ideations; E87.1 Hypo-osmolality and hyponatremia; E11.9 Type 2 diabetes mellitus without complications; F32.9 Major depressive disorder, single episode, unspecified; F41.9 Anxiety disorder, unspecified; F17.200 Nicotine dependence, unspecified, uncomplicated; Z72.89 Other problems related to lifestyle; I10 Essential (primary) hypertension; Z79.899 Other long term (current) drug therapy
CPT/HCPCS: 83036; 84443; 87081; G0480; J1610; J1815

== ENCOUNTER 2019-06-17 20:09 | Inpatient (IN) | payer MEDICAID, OTHER ==
[~2019-06-17] VITALS: Ht 180.3 cm; Wt 127.9 kg
[~2019-06-17 20:09] MED LIST changes: +INSLAN SQ; +METF-960 PO; -NALT50TA PO; +NALT50TA6 PO; +OLAN10TA3 PO; +OMEG-135 PO
[2019-06-17 21:47] LABS: BASOPHILS % (AUTO) 0.6 % (0.0-2.0); EOSINOPHILS % (AUTO) 3.3 % (1.0-6.0); HEMATOCRIT 41.4 % (41-53); HEMOGLOBIN 13.8 g/dL (13.5-17.5); LYMPHOCYTES # (AUTO) 1.2 K/uL (1.0-4.8); LYMPHOCYTES % (AUTO) 13.4 % (22.0-44.0); MEAN CORPUSCULAR HEMOGLOBIN 28.5 pg (26.0-34.0); MEAN CORPUSCULAR HGB CONC 33.4 G/dL (31.0-37.0); MEAN CORPUSCULAR VOLUME 85 fL (80-100); MONOCYTES # (AUTO) 0.6 K/uL (0.1-1.0); MONOCYTES % (AUTO) 7.3 % (2.0-9.0); NEUTROPHILS # (AUTO) 6.6 K/uL (1.8-7.7); NEUTROPHILS % (AUTO) 75.4 % (40.0-70.0); PLATELET COUNT (AUTO) 262 K/uL (150-450); RED BLOOD CELL COUNT(AUTO) 4.86 MIL/uL (4.50-5.90); RED CELL DISTRIBUTION WIDTH 13.5 % (11.5-14.5)
[2019-06-17] MEDS ORDERED: QUET25TA PO (21:48)
[2019-06-17 22:01] LABS: ANION GAP 8 mmol/L (8-16); CALCIUM, TOTAL 8.6 mg/dL (8.8-10.5); CARBON DIOXIDE 25 mmol/L (22-29); CHLORIDE 99 mmol/L (98-107); CREATININE 0.88 mg/dL (0.60-1.30); GLOMERULAR FILTR. RATE CALC > 60 mL/min (>60); GLUCOSE,RANDOM 374 mg/dL (70-110); POTASSIUM 4.1 mmol/L (3.5-5.1); SODIUM SERUM 132 mmol/L (136-145); UREA NITROGEN, BLOOD 12 mg/dL (7-18)
[2019-06-17 22:07] LABS: ALANINE AMINOTRANSFERASE 36 U/L (12-78); ALBUMIN 3.4 g/dL (3.4-5.0); ALKALINE PHOSPHATASE 82 U/L (46-116); ASPARTATE AMINOTRANSFERASE 27 U/L (15-37); BILIRUBIN,TOTAL 0.4 mg/dL (0.1-1.0); TOTAL PROTEIN, SERUM 6.8 g/dL (6.4-8.2)
[2019-06-17 22:15] LABS: GLUCOSE,POINT OF CARE 383 MG/DL (70-110)
[2019-06-17] MEDS ORDERED: HALOPERIDOL 5 MG TABLET PO PRN (22:30)
[2019-06-17] MEDS ORDERED: LORazepam 2 MG TABLET PO PRN (22:30)
[2019-06-17] MEDS ORDERED: ZOLPIDEM TARTRATE 10 MG TABLET PO PRN (22:30)
[2019-06-17] MEDS ORDERED: BACITRACIN 0.9 GM PACKET OINTMENT TP ONE (22:45)
[2019-06-17] MEDS ORDERED: DEXTRAN 70 0.1%/HYPROMELL 0.3% 0.9 ML OPHTHALMIC SOLUTION [PF] OU ONE (22:45)
[2019-06-17] MEDS ORDERED: INSULIN REGULAR, HUMAN 100 UNITS/ML SQ ONE (23:30)
[2019-06-18 00:24] VITALS: BP 124/73
[2019-06-18] MEDS ORDERED: PNEUMOCOCCAL VACCINE POLYVALENT 0.5 ML VIAL [PPSV23] IM ONE (01:15)
[2019-06-18] MEDS ORDERED: ONDANSETRON HCL 4 MG TABLET PO PRN (07:15)
[2019-06-18] MEDS ORDERED: MAGNESIUM HYDROXIDE SUSPENSION 30 ML UDCUP PO PRN (07:15)
[2019-06-18] MEDS ORDERED: PETROLATUM,WHITE 28 GM JELLY TP PRN (07:15)
[2019-06-18] MEDS ORDERED: GuaiFENesin/D-METHORPHAN [SUGAR-FREE] 200-20MG/10 ML SYRUP UDCUP PO PRN (07:15)
[2019-06-18] MEDS ORDERED: LOPERAMIDE HCL 2 MG CAPSULE PO PRN (07:15)
[2019-06-18] MEDS ORDERED: DOCUSATE SODIUM 100 MG CAPSULE PO PRN (07:15)
[2019-06-18] MEDS ORDERED: IBUPROFEN 400 MG TABLET PO PRN (07:15)
[2019-06-18] MEDS ORDERED: MAG HYDROX/AL HYDROX/SIMETH ES 30 ML SUSPENSION UDCUP PO PRN (07:15)
[2019-06-18] MEDS ORDERED: ACETAMINOPHEN 325 MG TABLET PO PRN (07:15)
[2019-06-18] MEDS ORDERED: GLUCAGON,HUMAN RECOMBINANT 1 MG VIAL IM PRN (07:30)
[2019-06-18 08:20] VITALS: BP 112/63
[2019-06-18] MEDS: OLANZapine 5 MG TABLET PO SCH (10:29)
[2019-06-18] MEDS: INSULIN LISPRO 100 UNITS/ML SQ PRN ×3 (14:55→21:36)
[2019-06-18 15:00] LABS: GLUCOMETER DEV NAME(LOC) BV3N.; GLUCOSE,POINT OF CARE 395 MG/DL (70-110)
[2019-06-18 16:00] VITALS: BP 119/65
[2019-06-18] MEDS: MetFORMIN HCL 500 MG TABLET PO SCH (17:11)
[2019-06-18] MEDS ORDERED: DEXTRAN 70 0.1%/HYPROMELL 0.3% 0.9 ML OPHTHALMIC SOLUTION [PF] OU PRN ×2 (17:30→21:15)
[2019-06-18] MEDS: OLANZapine 10 MG TABLET PO SCH (21:32)
[2019-06-18] MEDS: INSULIN GLARGINE,HUM.REC.ANLOG 100 UNITS/ML SQ SCH (21:35)
[2019-06-18 21:46] LABS: GLUCOMETER DEV NAME(LOC) BV3N.; GLUCOSE,POINT OF CARE 279 MG/DL (70-110)
[2019-06-19 06:25] LABS: GLUCOMETER DEV NAME(LOC) BV3N.; GLUCOSE,POINT OF CARE 207 MG/DL (70-110)
[2019-06-19] MEDS: MetFORMIN HCL 500 MG TABLET PO SCH ×2 (06:28→16:04)
[2019-06-19] MEDS: INSULIN LISPRO 100 UNITS/ML SQ PRN ×4 (06:46→21:24)
[2019-06-19 08:01] VITALS: BP 133/58
[2019-06-19] MEDS: OLANZapine 5 MG TABLET PO SCH (08:37)
[2019-06-19 11:55] LABS: GLUCOMETER DEV NAME(LOC) BV3N.; GLUCOSE,POINT OF CARE 274 MG/DL (70-110)
[2019-06-19 16:00] VITALS: BP 137/64
[2019-06-19 16:35] LABS: GLUCOMETER DEV NAME(LOC) BV3N.; GLUCOSE,POINT OF CARE 239 MG/DL (70-110)
[2019-06-19] MEDS: OLANZapine 10 MG TABLET PO SCH (20:04)
[2019-06-19] MEDS: INSULIN GLARGINE,HUM.REC.ANLOG 100 UNITS/ML SQ SCH (21:24)
[2019-06-19 21:27] LABS: GLUCOMETER DEV NAME(LOC) BV3N.; GLUCOSE,POINT OF CARE 297 MG/DL (70-110)
[2019-06-20] MEDS: MetFORMIN HCL 500 MG TABLET PO SCH ×2 (06:36→16:50)
[2019-06-20] MEDS: INSULIN LISPRO 100 UNITS/ML SQ PRN ×4 (07:04→20:45)
[2019-06-20 07:06] LABS: GLUCOMETER DEV NAME(LOC) BV3N.; GLUCOSE,POINT OF CARE 208 MG/DL (70-110)
[2019-06-20 08:49] VITALS: BP 118/60
[2019-06-20] MEDS: OLANZapine 5 MG TABLET PO SCH (08:55)
[2019-06-20 11:21] LABS: GLUCOMETER DEV NAME(LOC) BV3N.; GLUCOSE,POINT OF CARE 233 MG/DL (70-110)
[2019-06-20 16:00] VITALS: BP 122/64
[2019-06-20 17:20] LABS: GLUCOMETER DEV NAME(LOC) BV3N.; GLUCOSE,POINT OF CARE 251 MG/DL (70-110)
[2019-06-20] MEDS: OLANZapine 10 MG TABLET PO SCH (20:40)
[2019-06-20] MEDS: INSULIN GLARGINE,HUM.REC.ANLOG 100 UNITS/ML SQ SCH (20:45)
[2019-06-20 21:00] LABS: GLUCOMETER DEV NAME(LOC) BV3N.; GLUCOSE,POINT OF CARE 231 MG/DL (70-110)
[2019-06-21 06:26] LABS: GLUCOMETER DEV NAME(LOC) BV3N.; GLUCOSE,POINT OF CARE 173 MG/DL (70-110)
[2019-06-21] MEDS: MetFORMIN HCL 500 MG TABLET PO SCH ×2 (06:28→16:39)
[2019-06-21] MEDS: INSULIN LISPRO 100 UNITS/ML SQ PRN ×3 (06:33→20:46)
[2019-06-21] MEDS: OLANZapine 5 MG TABLET PO SCH (08:23)
[2019-06-21 12:30] LABS: GLUCOMETER DEV NAME(LOC) BV3N.; GLUCOSE,POINT OF CARE 136 MG/DL (70-110)
[2019-06-21 17:05] LABS: GLUCOMETER DEV NAME(LOC) BV3N.; GLUCOSE,POINT OF CARE 240 MG/DL (70-110)
[2019-06-21] MEDS: OLANZapine 10 MG TABLET PO SCH (20:36)
[2019-06-21] MEDS: INSULIN GLARGINE,HUM.REC.ANLOG 100 UNITS/ML SQ SCH (20:46)
[2019-06-21 21:00] LABS: GLUCOMETER DEV NAME(LOC) BV3N.; GLUCOSE,POINT OF CARE 231 MG/DL (70-110)
[2019-06-22 06:36] LABS: GLUCOMETER DEV NAME(LOC) BV3N.; GLUCOSE,POINT OF CARE 168 MG/DL (70-110)
[2019-06-22] MEDS: INSULIN LISPRO 100 UNITS/ML SQ PRN ×4 (06:48→21:06)
[2019-06-22] MEDS: MetFORMIN HCL 500 MG TABLET PO SCH ×2 (07:18→17:07)
[2019-06-22 08:28] VITALS: BP 121/76
[2019-06-22] MEDS: OLANZapine 5 MG TABLET PO SCH (09:40)
[2019-06-22 11:51] LABS: GLUCOMETER DEV NAME(LOC) BV3N.; GLUCOSE,POINT OF CARE 172 MG/DL (70-110)
[2019-06-22 16:00] VITALS: BP 117/77
[2019-06-22 17:36] LABS: GLUCOMETER DEV NAME(LOC) BV3N.; GLUCOSE,POINT OF CARE 271 MG/DL (70-110)
[2019-06-22] MEDS: OLANZapine 10 MG TABLET PO SCH (21:02)
[2019-06-22] MEDS: INSULIN GLARGINE,HUM.REC.ANLOG 100 UNITS/ML SQ SCH (21:07)
[2019-06-22 21:10] LABS: GLUCOMETER DEV NAME(LOC) BV3N.; GLUCOSE,POINT OF CARE 225 MG/DL (70-110)
[2019-06-23 05:22] VITALS: BP 101/62
[2019-06-23 06:26] LABS: GLUCOMETER DEV NAME(LOC) BV3N.; GLUCOSE,POINT OF CARE 252 MG/DL (70-110)
[2019-06-23] MEDS: MetFORMIN HCL 500 MG TABLET PO SCH ×2 (06:34→16:08)
[2019-06-23] MEDS: INSULIN LISPRO 100 UNITS/ML SQ PRN ×4 (06:36→21:00)
[2019-06-23 08:08] VITALS: BP 105/57
[2019-06-23] MEDS: OLANZapine 5 MG TABLET PO SCH (08:26)
[2019-06-23 11:45] LABS: GLUCOMETER DEV NAME(LOC) BV3N.; GLUCOSE,POINT OF CARE 216 MG/DL (70-110)
[2019-06-23 16:10] VITALS: BP 128/69
[2019-06-23 16:35] LABS: GLUCOMETER DEV NAME(LOC) BV3N.; GLUCOSE,POINT OF CARE 210 MG/DL (70-110)
[2019-06-23] MEDS: OLANZapine 10 MG TABLET PO SCH (20:14)
[2019-06-23 20:48] LABS: GLUCOMETER DEV NAME(LOC) BV3N.; GLUCOSE,POINT OF CARE 223 MG/DL (70-110)
[2019-06-23] MEDS: INSULIN GLARGINE,HUM.REC.ANLOG 100 UNITS/ML SQ SCH (21:00)
[2019-06-24 00:23] VITALS: BP 106/57
[2019-06-24 06:41] LABS: GLUCOMETER DEV NAME(LOC) BV3N.; GLUCOSE,POINT OF CARE 203 MG/DL (70-110)
[2019-06-24] MEDS: INSULIN LISPRO 100 UNITS/ML SQ PRN ×4 (06:47→20:41)
[2019-06-24] MEDS: MetFORMIN HCL 500 MG TABLET PO SCH ×2 (06:49→16:39)
[2019-06-24 08:14] VITALS: BP 100/61
[2019-06-24] MEDS: OLANZapine 5 MG TABLET PO SCH (08:38)
[2019-06-24 11:25] LABS: GLUCOMETER DEV NAME(LOC) BV3N.; GLUCOSE,POINT OF CARE 213 MG/DL (70-110)
[2019-06-24 16:00] VITALS: BP 117/64
[2019-06-24 17:36] LABS: GLUCOMETER DEV NAME(LOC) BV3N.; GLUCOSE,POINT OF CARE 186 MG/DL (70-110)
[2019-06-24] MEDS: OLANZapine 10 MG TABLET PO SCH (20:37)
[2019-06-24] MEDS: INSULIN GLARGINE,HUM.REC.ANLOG 100 UNITS/ML SQ SCH (20:41)
[2019-06-24 20:51] LABS: GLUCOMETER DEV NAME(LOC) BV3N.; GLUCOSE,POINT OF CARE 261 MG/DL (70-110)
[2019-06-25 06:09] VITALS: BP 119/71
[2019-06-25 06:26] LABS: GLUCOMETER DEV NAME(LOC) BV3N.; GLUCOSE,POINT OF CARE 165 MG/DL (70-110)
[2019-06-25] MEDS: MetFORMIN HCL 500 MG TABLET PO SCH ×2 (06:54→16:55)
[2019-06-25] MEDS: INSULIN LISPRO 100 UNITS/ML SQ PRN ×4 (06:55→20:57)
[2019-06-25 08:11] VITALS: BP 115/63
[2019-06-25] MEDS: OLANZapine 5 MG TABLET PO SCH ×3 (08:27→20:53)
[2019-06-25 11:11] LABS: GLUCOMETER DEV NAME(LOC) BV3N.; GLUCOSE,POINT OF CARE 169 MG/DL (70-110)
[2019-06-25 16:06] VITALS: BP 140/84
[2019-06-25] MEDS: HYPROMELLOSE 0.5% 15 ML OPHTHALMIC SOLUTION OU PRN ×2 (16:55→20:53)
[2019-06-25] MEDS ORDERED: OLANZapine 5 MG TABLET PO SCH (17:00)
[2019-06-25 17:11] LABS: GLUCOMETER DEV NAME(LOC) BV3N.; GLUCOSE,POINT OF CARE 198 MG/DL (70-110)
[2019-06-25] MEDS: INSULIN GLARGINE,HUM.REC.ANLOG 100 UNITS/ML SQ SCH (20:56)
[2019-06-26 00:25] LABS: GLUCOMETER DEV NAME(LOC) BV3N.; GLUCOSE,POINT OF CARE 283 MG/DL (70-110)
[2019-06-26 06:19] VITALS: BP 128/81
[2019-06-26] MEDS: MetFORMIN HCL 500 MG TABLET PO SCH ×2 (06:28→16:55)
[2019-06-26 06:31] LABS: GLUCOMETER DEV NAME(LOC) BV3N.; GLUCOSE,POINT OF CARE 155 MG/DL (70-110)
[2019-06-26] MEDS: INSULIN LISPRO 100 UNITS/ML SQ PRN ×3 (06:39→16:58)
[2019-06-26] MEDS: OLANZapine 5 MG TABLET PO SCH ×2 (08:17→20:28)
[2019-06-26 08:33] VITALS: BP 135/64
[2019-06-26 11:51] LABS: GLUCOMETER DEV NAME(LOC) BV3N.; GLUCOSE,POINT OF CARE 212 MG/DL (70-110)
[2019-06-26 16:12] VITALS: BP 128/77
[2019-06-26 17:17] LABS: GLUCOMETER DEV NAME(LOC) BV3N.; GLUCOSE,POINT OF CARE 209 MG/DL (70-110)
[2019-06-26] MEDS: HYPROMELLOSE 0.5% 15 ML OPHTHALMIC SOLUTION OU PRN (18:45)
[2019-06-26] MEDS: INSULIN GLARGINE,HUM.REC.ANLOG 100 UNITS/ML SQ SCH (20:20)
[2019-06-26 20:26] LABS: GLUCOMETER DEV NAME(LOC) BV2S.; GLUCOSE,POINT OF CARE 251 MG/DL (70-110)
[2019-06-27] MEDS: HYPROMELLOSE 0.5% 15 ML OPHTHALMIC SOLUTION OU PRN ×2 (01:47→08:56)
[2019-06-27 03:31] VITALS: BP 122/65
[2019-06-27 06:26] LABS: GLUCOMETER DEV NAME(LOC) BV2S.; GLUCOSE,POINT OF CARE 175 MG/DL (70-110)
[2019-06-27] MEDS: MetFORMIN HCL 500 MG TABLET PO SCH (07:08)
[2019-06-27] MEDS: INSULIN LISPRO 100 UNITS/ML SQ PRN ×2 (07:09→11:38)
[2019-06-27] MEDS: OLANZapine 5 MG TABLET PO SCH (08:14)
[2019-06-27 09:38] VITALS: BP 125/63
[2019-06-27] MEDS ORDERED: OLAN5TAB27 PO (09:55)
[2019-06-27] MEDS ORDERED: OLAN5TAB2 PO (11:01)
[2019-06-27 11:31] LABS: GLUCOMETER DEV NAME(LOC) BV2S.; GLUCOSE,POINT OF CARE 293 MG/DL (70-110)
== END 2019-06-27 15:05 | disposition home or self-care (01) | DRG 750 ==
LOC: EMS 20:10 → B3A 22:53 → B2S 06-26 17:30
PROVIDERS: ADMIT Psychiatry & Neurology Child & Adolescent Psychiatry; ATTEND Psychiatry & Neurology Child & Adolescent Psychiatry
DX: F25.0 Schizoaffective disorder, bipolar type (principal); R45.851 Suicidal ideations; E11.65 Type 2 diabetes mellitus with hyperglycemia; E87.1 Hypo-osmolality and hyponatremia; I10 Essential (primary) hypertension; F41.9 Anxiety disorder, unspecified; F10.10 Alcohol abuse, uncomplicated; Y90.9 Presence of alcohol in blood, level not specified; F17.210 Nicotine dependence, cigarettes, uncomplicated; R45.87 Impulsiveness; E66.9 Obesity, unspecified; Z68.39 Body mass index [BMI] 39.0-39.9, adult; Z71.41 Alcohol abuse counseling and surveillance of alcoholic; Z71.51 Drug abuse counseling and surveillance of drug abuser; Z59.0 Homelessness
CPT/HCPCS: G0480; J1815

== ENCOUNTER 2019-07-17 17:19 | Inpatient (IN) | payer MEDICAID ==
[~2019-07-17] VITALS: Ht 180.3 cm; Wt 130.9 kg
[~2019-07-17 17:19] MED LIST changes: -DIVA500T52 PO; -LISI-661 PO; -NALT50TA6 PO; -OLAN10TA3 PO; +OLAN5TAB2 PO; +OLAN5TAB27 PO; -OMEG-135 PO
[2019-07-17] MEDS ORDERED: ZOLPIDEM TARTRATE 10 MG TABLET PO PRN (20:30)
[2019-07-17] MEDS ORDERED: HALOPERIDOL 5 MG TABLET PO PRN (20:30)
[2019-07-17] MEDS ORDERED: LORazepam 2 MG TABLET PO PRN (20:30)
[2019-07-17] MEDS ORDERED: GLUCAGON,HUMAN RECOMBINANT 1 MG VIAL IM PRN (21:45)
[2019-07-17] MEDS ORDERED: PETROLATUM,WHITE 28 GM JELLY TP PRN (21:45)
[2019-07-17] MEDS: INSULIN GLARGINE,HUM.REC.ANLOG 100 UNITS/ML SQ SCH (22:00)
[2019-07-18] MEDS: MetFORMIN HCL 500 MG TABLET PO SCH ×2 (06:44→16:57)
[2019-07-18 06:46] LABS: GLUCOMETER DEV NAME(LOC) BV3N.; GLUCOSE,POINT OF CARE 262 MG/DL (70-110)
[2019-07-18] MEDS: INSULIN LISPRO 100 UNITS/ML SQ PRN ×4 (06:49→21:18)
[2019-07-18 07:10] VITALS: BP 155/89
[2019-07-18 07:18] LABS: BASOPHILS % (AUTO) 1.2 % (0.0-2.0); HEMATOCRIT 41.8 % (41-53); HEMOGLOBIN 14.5 g/dL (13.5-17.5); LYMPHOCYTES # (AUTO) 1.3 K/uL (1.0-4.8); MEAN CORPUSCULAR HEMOGLOBIN 29.4 pg (26.0-34.0); MEAN CORPUSCULAR HGB CONC 34.6 G/dL (31.0-37.0); MEAN CORPUSCULAR VOLUME 85 fL (80-100); MONOCYTES # (AUTO) 0.7 K/uL (0.1-1.0); MONOCYTES % (AUTO) 10.1 % (2.0-9.0); NEUTROPHILS # (AUTO) 4.1 K/uL (1.8-7.7); NEUTROPHILS % (AUTO) 63.7 % (40.0-70.0); PLATELET COUNT (AUTO) 196 K/uL (150-450); RED BLOOD CELL COUNT(AUTO) 4.92 MIL/uL (4.50-5.90); RED CELL DISTRIBUTION WIDTH 13.6 % (11.5-14.5)
[2019-07-18 07:48] LABS: ALANINE AMINOTRANSFERASE 50 U/L (12-78); ALBUMIN 3.5 g/dL (3.4-5.0); ALKALINE PHOSPHATASE 65 U/L (46-116); ANION GAP 8 mmol/L (8-16); ASPARTATE AMINOTRANSFERASE 23 U/L (15-37); BILIRUBIN,TOTAL 0.4 mg/dL (0.1-1.0); CALCIUM, TOTAL 8.9 mg/dL (8.8-10.5); CARBON DIOXIDE 30 mmol/L (22-29); CHLORIDE 98 mmol/L (98-107); CREATININE 0.86 mg/dL (0.60-1.30); FREE T4 (FREE THYROXINE) 0.87 ng/dL (0.76-1.46); GLOMERULAR FILTR. RATE CALC > 60 mL/min (>60); GLUCOSE,RANDOM 267 mg/dL (70-110); POTASSIUM 4.3 mmol/L (3.5-5.1); SODIUM SERUM 136 mmol/L (136-145); THYROID STIMULATING HORMONE 2.96 uIU/mL (0.36-3.74); TOTAL PROTEIN, SERUM 6.6 g/dL (6.4-8.2); UREA NITROGEN, BLOOD 14 mg/dL (7-18)
[2019-07-18 07:53] LABS: HEMOGLOBIN A1C 10.1 % (4.5-6.2)
[2019-07-18 09:43] VITALS: BP 125/64
[2019-07-18] MEDS: SERTRALINE HCL 50 MG TABLET PO SCH (09:55)
[2019-07-18] MEDS: OLANZapine 5 MG TABLET PO SCH ×2 (09:55→21:00)
[2019-07-18] MEDS ORDERED: ONDANSETRON HCL 4 MG TABLET PO PRN (11:15)
[2019-07-18] MEDS ORDERED: GuaiFENesin/D-METHORPHAN [SUGAR-FREE] 200-20MG/10 ML SYRUP UDCUP PO PRN (11:15)
[2019-07-18] MEDS ORDERED: MAGNESIUM HYDROXIDE SUSPENSION 30 ML UDCUP PO PRN (11:15)
[2019-07-18] MEDS ORDERED: CloNIDine HCL 0.1 MG TABLET PO PRN (11:15)
[2019-07-18] MEDS ORDERED: GLUCAGON,HUMAN RECOMBINANT 1 MG VIAL IM PRN (11:15)
[2019-07-18] MEDS ORDERED: ACETAMINOPHEN 325 MG TABLET PO PRN (11:15)
[2019-07-18] MEDS ORDERED: DOCUSATE SODIUM 100 MG CAPSULE PO PRN (11:15)
[2019-07-18] MEDS ORDERED: ALBUTEROL SULFATE HFA 90 MCG/PUFF 8 GM INHALER IH PRN (11:15)
[2019-07-18] MEDS ORDERED: LOPERAMIDE HCL 2 MG CAPSULE PO PRN (11:15)
[2019-07-18 16:00] VITALS: BP 124/67
[2019-07-18 16:46] LABS: GLUCOMETER DEV NAME(LOC) BV3N.; GLUCOSE,POINT OF CARE 259 MG/DL (70-110)
[2019-07-18 17:16] LABS: GLUCOMETER DEV NAME(LOC) BV3N.; GLUCOSE,POINT OF CARE 309 MG/DL (70-110)
[2019-07-18] MEDS: INSULIN GLARGINE,HUM.REC.ANLOG 100 UNITS/ML SQ SCH (21:18)
[2019-07-18 21:37] LABS: GLUCOMETER DEV NAME(LOC) BV3N.; GLUCOSE,POINT OF CARE 310 MG/DL (70-110)
[2019-07-19 06:02] VITALS: BP 134/72
[2019-07-19] MEDS: MetFORMIN HCL 500 MG TABLET PO SCH ×2 (06:35→16:59)
[2019-07-19 06:36] LABS: GLUCOMETER DEV NAME(LOC) BV3N.; GLUCOSE,POINT OF CARE 227 MG/DL (70-110)
[2019-07-19] MEDS: INSULIN LISPRO 100 UNITS/ML SQ PRN ×4 (06:58→21:06)
[2019-07-19] MEDS: SERTRALINE HCL 50 MG TABLET PO SCH (08:35)
[2019-07-19] MEDS: OLANZapine 5 MG TABLET PO SCH ×2 (08:35→21:00)
[2019-07-19 08:44] VITALS: BP 137/66
[2019-07-19 12:07] LABS: GLUCOMETER DEV NAME(LOC) BV3N.; GLUCOSE,POINT OF CARE 243 MG/DL (70-110)
[2019-07-19 16:07] VITALS: BP 167/88
[2019-07-19] MEDS: HYPROMELLOSE 0.5% 15 ML OPHTHALMIC SOLUTION OU PRN (17:12)
[2019-07-19 17:21] LABS: GLUCOMETER DEV NAME(LOC) BV3N.; GLUCOSE,POINT OF CARE 281 MG/DL (70-110)
[2019-07-19] MEDS: INSULIN GLARGINE,HUM.REC.ANLOG 100 UNITS/ML SQ SCH (21:06)
[2019-07-19 21:31] LABS: GLUCOMETER DEV NAME(LOC) BV3N.; GLUCOSE,POINT OF CARE 274 MG/DL (70-110)
[2019-07-20 00:25] VITALS: BP 128/78
[2019-07-20 06:36] LABS: GLUCOMETER DEV NAME(LOC) BV3N.; GLUCOSE,POINT OF CARE 180 MG/DL (70-110)
[2019-07-20] MEDS: MetFORMIN HCL 500 MG TABLET PO SCH ×2 (06:43→16:54)
[2019-07-20] MEDS: INSULIN LISPRO 100 UNITS/ML SQ PRN ×4 (06:47→21:21)
[2019-07-20 08:40] VITALS: BP 143/62
[2019-07-20] MEDS: OLANZapine 5 MG TABLET PO SCH (08:49)
[2019-07-20] MEDS: SERTRALINE HCL 50 MG TABLET PO SCH (08:49)
[2019-07-20 11:56] LABS: GLUCOMETER DEV NAME(LOC) BV3N.; GLUCOSE,POINT OF CARE 303 MG/DL (70-110)
[2019-07-20 16:00] VITALS: BP 109/63
[2019-07-20] MEDS: HYPROMELLOSE 0.5% 15 ML OPHTHALMIC SOLUTION OU PRN (17:06)
[2019-07-20 17:07] LABS: GLUCOMETER DEV NAME(LOC) BV3N.; GLUCOSE,POINT OF CARE 233 MG/DL (70-110)
[2019-07-20] MEDS: INSULIN GLARGINE,HUM.REC.ANLOG 100 UNITS/ML SQ SCH (21:21)
[2019-07-20 21:36] LABS: GLUCOMETER DEV NAME(LOC) BV3N.; GLUCOSE,POINT OF CARE 244 MG/DL (70-110)
[2019-07-21 05:15] VITALS: BP 113/73
[2019-07-21 06:31] LABS: GLUCOMETER DEV NAME(LOC) BV3N.; GLUCOSE,POINT OF CARE 163 MG/DL (70-110)
[2019-07-21] MEDS: INSULIN LISPRO 100 UNITS/ML SQ PRN ×4 (06:58→20:47)
[2019-07-21] MEDS: MetFORMIN HCL 500 MG TABLET PO SCH ×2 (07:05→16:25)
[2019-07-21 07:54] LABS: BASOPHILS % (AUTO) 1.2 % (0.0-2.0); EOSINOPHILS % (AUTO) 4.9 % (1.0-6.0); HEMATOCRIT 42.5 % (41-53); HEMOGLOBIN 14.8 g/dL (13.5-17.5); LYMPHOCYTES # (AUTO) 1.3 K/uL (1.0-4.8); LYMPHOCYTES % (AUTO) 16.9 % (22.0-44.0); MEAN CORPUSCULAR HEMOGLOBIN 29.5 pg (26.0-34.0); MEAN CORPUSCULAR HGB CONC 34.9 G/dL (31.0-37.0); MEAN CORPUSCULAR VOLUME 85 fL (80-100); MONOCYTES # (AUTO) 0.8 K/uL (0.1-1.0); MONOCYTES % (AUTO) 10.8 % (2.0-9.0); NEUTROPHILS # (AUTO) 5.1 K/uL (1.8-7.7); NEUTROPHILS % (AUTO) 66.2 % (40.0-70.0); PLATELET COUNT (AUTO) 188 K/uL (150-450); RED BLOOD CELL COUNT(AUTO) 5.03 MIL/uL (4.50-5.90); RED CELL DISTRIBUTION WIDTH 14.1 % (11.5-14.5)
[2019-07-21] MEDS: OLANZapine 5 MG TABLET PO SCH (08:09)
[2019-07-21] MEDS: SERTRALINE HCL 50 MG TABLET PO SCH (08:09)
[2019-07-21 08:10] VITALS: BP 120/80
[2019-07-21 11:25] LABS: GLUCOMETER DEV NAME(LOC) BV3N.; GLUCOSE,POINT OF CARE 188 MG/DL (70-110)
[2019-07-21 16:00] VITALS: BP 140/79
[2019-07-21] MEDS: PETROLATUM,WHITE 28 GM JELLY TP PRN (18:38)
[2019-07-21] MEDS: HYPROMELLOSE 0.5% 15 ML OPHTHALMIC SOLUTION OU PRN (18:38)
[2019-07-21 20:47] LABS: GLUCOMETER DEV NAME(LOC) BV3N.; GLUCOSE,POINT OF CARE 224 MG/DL (70-110)
[2019-07-21 20:47] LABS: GLUCOMETER DEV NAME(LOC) BV3N.; GLUCOSE,POINT OF CARE 275 MG/DL (70-110)
[2019-07-21] MEDS: INSULIN GLARGINE,HUM.REC.ANLOG 100 UNITS/ML SQ SCH (20:48)
[2019-07-22 06:21] VITALS: BP 124/64
[2019-07-22 06:25] LABS: GLUCOMETER DEV NAME(LOC) BV3N.; GLUCOSE,POINT OF CARE 195 MG/DL (70-110)
[2019-07-22] MEDS: MetFORMIN HCL 500 MG TABLET PO SCH ×2 (06:50→16:44)
[2019-07-22] MEDS: INSULIN LISPRO 100 UNITS/ML SQ PRN ×4 (06:52→20:50)
[2019-07-22] MEDS: OLANZapine 5 MG TABLET PO SCH (09:18)
[2019-07-22] MEDS: SERTRALINE HCL 50 MG TABLET PO SCH (09:18)
[2019-07-22 11:40] LABS: GLUCOMETER DEV NAME(LOC) BV3N.; GLUCOSE,POINT OF CARE 223 MG/DL (70-110)
[2019-07-22] MEDS: NICOTINE 14 MG/24 HOUR PATCH TD PRN (13:37)
[2019-07-22] MEDS: HYPROMELLOSE 0.5% 15 ML OPHTHALMIC SOLUTION OU PRN ×2 (13:37→19:11)
[2019-07-22 16:00] VITALS: BP 144/78
[2019-07-22 17:11] LABS: GLUCOMETER DEV NAME(LOC) BV3N.; GLUCOSE,POINT OF CARE 287 MG/DL (70-110)
[2019-07-22] MEDS: INSULIN GLARGINE,HUM.REC.ANLOG 100 UNITS/ML SQ SCH (20:50)
[2019-07-22 21:01] LABS: GLUCOMETER DEV NAME(LOC) BV3N.; GLUCOSE,POINT OF CARE 298 MG/DL (70-110)
[2019-07-23 06:50] LABS: GLUCOMETER DEV NAME(LOC) BV3N.; GLUCOSE,POINT OF CARE 186 MG/DL (70-110)
[2019-07-23 07:05] VITALS: BP 140/72
[2019-07-23] MEDS: INSULIN LISPRO 100 UNITS/ML SQ PRN ×4 (07:14→21:00)
[2019-07-23] MEDS: MetFORMIN HCL 500 MG TABLET PO SCH ×2 (07:18→16:37)
[2019-07-23 08:29] VITALS: BP 126/62
[2019-07-23] MEDS: OLANZapine 5 MG TABLET PO SCH (08:51)
[2019-07-23] MEDS: SERTRALINE HCL 50 MG TABLET PO SCH (08:51)
[2019-07-23 11:55] LABS: GLUCOMETER DEV NAME(LOC) BV3N.; GLUCOSE,POINT OF CARE 278 MG/DL (70-110)
[2019-07-23] MEDS: HYPROMELLOSE 0.5% 15 ML OPHTHALMIC SOLUTION OU PRN (15:33)
[2019-07-23] MEDS: PETROLATUM,WHITE 28 GM JELLY TP PRN (15:34)
[2019-07-23 17:00] LABS: GLUCOMETER DEV NAME(LOC) BV3N.; GLUCOSE,POINT OF CARE 276 MG/DL (70-110)
[2019-07-23 17:16] VITALS: BP 135/76
[2019-07-23] MEDS: INSULIN GLARGINE,HUM.REC.ANLOG 100 UNITS/ML SQ SCH (21:00)
[2019-07-23 21:11] LABS: GLUCOMETER DEV NAME(LOC) BV3N.; GLUCOSE,POINT OF CARE 291 MG/DL (70-110)
[2019-07-24 06:16] LABS: GLUCOMETER DEV NAME(LOC) BV3S.; GLUCOSE,POINT OF CARE 217 MG/DL (70-110)
[2019-07-24 06:39] VITALS: BP 126/79
[2019-07-24] MEDS: INSULIN LISPRO 100 UNITS/ML SQ PRN ×3 (06:45→20:50)
[2019-07-24] MEDS: MetFORMIN HCL 500 MG TABLET PO SCH ×2 (06:53→16:48)
[2019-07-24] MEDS: OLANZapine 5 MG TABLET PO SCH (08:08)
[2019-07-24] MEDS: SERTRALINE HCL 50 MG TABLET PO SCH (08:08)
[2019-07-24 08:17] VITALS: BP 138/71
[2019-07-24 12:31] LABS: GLUCOMETER DEV NAME(LOC) BV3N.; GLUCOSE,POINT OF CARE 155 MG/DL (70-110)
[2019-07-24] MEDS: HYPROMELLOSE 0.5% 15 ML OPHTHALMIC SOLUTION OU PRN (13:42)
[2019-07-24 13:52] VITALS: BP 158/94
[2019-07-24] MEDS: IBUPROFEN 400 MG TABLET PO PRN (13:52)
[2019-07-24 16:32] LABS: GLUCOMETER DEV NAME(LOC) BV3N.; GLUCOSE,POINT OF CARE 368 MG/DL (70-110)
[2019-07-24 17:20] VITALS: BP 177/89
[2019-07-24 18:25] VITALS: BP 137/68
[2019-07-24 20:41] LABS: GLUCOMETER DEV NAME(LOC) BV3N.; GLUCOSE,POINT OF CARE 266 MG/DL (70-110)
[2019-07-24] MEDS: INSULIN GLARGINE,HUM.REC.ANLOG 100 UNITS/ML SQ SCH (20:50)
[2019-07-25 06:10] VITALS: BP 120/60
[2019-07-25 06:26] LABS: GLUCOMETER DEV NAME(LOC) BV3N.; GLUCOSE,POINT OF CARE 191 MG/DL (70-110)
[2019-07-25] MEDS: MetFORMIN HCL 500 MG TABLET PO SCH ×2 (06:40→16:28)
[2019-07-25] MEDS: INSULIN LISPRO 100 UNITS/ML SQ PRN ×4 (06:43→20:57)
[2019-07-25 08:00] VITALS: BP 145/68
[2019-07-25] MEDS: SERTRALINE HCL 50 MG TABLET PO SCH (08:30)
[2019-07-25] MEDS: OLANZapine 5 MG TABLET PO SCH (08:30)
[2019-07-25] MEDS: LISINOPRIL 10 MG TABLET PO SCH (08:30)
[2019-07-25 11:10] VITALS: BP 137/70
[2019-07-25] MEDS: IBUPROFEN 400 MG TABLET PO PRN (11:10)
[2019-07-25 11:30] LABS: GLUCOMETER DEV NAME(LOC) BV3N.; GLUCOSE,POINT OF CARE 305 MG/DL (70-110)
[2019-07-25 16:00] VITALS: BP 131/76
[2019-07-25 16:10] LABS: GLUCOMETER DEV NAME(LOC) BV3N.; GLUCOSE,POINT OF CARE 238 MG/DL (70-110)
[2019-07-25 20:45] LABS: GLUCOMETER DEV NAME(LOC) BV3N.; GLUCOSE,POINT OF CARE 223 MG/DL (70-110)
[2019-07-25] MEDS: INSULIN GLARGINE,HUM.REC.ANLOG 100 UNITS/ML SQ SCH (20:52)
[2019-07-26] MEDS: HYPROMELLOSE 0.5% 15 ML OPHTHALMIC SOLUTION OU PRN ×2 (01:05→20:48)
[2019-07-26 06:11] LABS: GLUCOMETER DEV NAME(LOC) BV3N.; GLUCOSE,POINT OF CARE 209 MG/DL (70-110)
[2019-07-26] MEDS: MetFORMIN HCL 500 MG TABLET PO SCH ×2 (06:33→16:47)
[2019-07-26] MEDS: INSULIN LISPRO 100 UNITS/ML SQ PRN ×4 (06:35→20:29)
[2019-07-26 07:17] VITALS: BP 128/79
[2019-07-26] MEDS: SERTRALINE HCL 50 MG TABLET PO SCH (08:38)
[2019-07-26] MEDS: LISINOPRIL 10 MG TABLET PO SCH (08:38)
[2019-07-26] MEDS: OLANZapine 5 MG TABLET PO SCH (08:38)
[2019-07-26 08:55] VITALS: BP 135/70
[2019-07-26 11:51] LABS: GLUCOMETER DEV NAME(LOC) BV2S.; GLUCOSE,POINT OF CARE 238 MG/DL (70-110)
[2019-07-26] MEDS: MAG HYDROX/AL HYDROX/SIMETH ES 30 ML SUSPENSION UDCUP PO PRN (14:28)
[2019-07-26] MEDS: IBUPROFEN 400 MG TABLET PO PRN (14:28)
[2019-07-26 16:05] VITALS: BP 126/78
[2019-07-26] MEDS: INSULIN GLARGINE,HUM.REC.ANLOG 100 UNITS/ML SQ SCH (20:29)
[2019-07-26 21:01] LABS: GLUCOMETER DEV NAME(LOC) BV2S.; GLUCOSE,POINT OF CARE 228 MG/DL (70-110)
[2019-07-26 21:01] LABS: GLUCOMETER DEV NAME(LOC) BV2S.; GLUCOSE,POINT OF CARE 261 MG/DL (70-110)
[2019-07-27] MEDS: HYPROMELLOSE 0.5% 15 ML OPHTHALMIC SOLUTION OU PRN ×2 (04:45→20:12)
[2019-07-27 06:02] VITALS: BP 127/75
[2019-07-27] MEDS: MetFORMIN HCL 500 MG TABLET PO SCH ×2 (06:29→16:27)
[2019-07-27 06:31] LABS: GLUCOMETER DEV NAME(LOC) BV2S.; GLUCOSE,POINT OF CARE 175 MG/DL (70-110)
[2019-07-27] MEDS: INSULIN LISPRO 100 UNITS/ML SQ PRN ×3 (06:35→16:37)
[2019-07-27 08:18] VITALS: BP 132/66
[2019-07-27] MEDS: LISINOPRIL 10 MG TABLET PO SCH ×2 (08:32→09:00)
[2019-07-27] MEDS: SERTRALINE HCL 50 MG TABLET PO SCH ×2 (08:32→09:00)
[2019-07-27] MEDS ORDERED: OLANZapine 10 MG TABLET PO SCH ×2 (09:00→21:00)
[2019-07-27 09:37] VITALS: BP 139/70
[2019-07-27] MEDS: MAG HYDROX/AL HYDROX/SIMETH ES 30 ML SUSPENSION UDCUP PO PRN ×2 (09:37→20:11)
[2019-07-27] MEDS: IBUPROFEN 400 MG TABLET PO PRN ×2 (09:37→20:11)
[2019-07-27 12:07] LABS: GLUCOMETER DEV NAME(LOC) BV2S.; GLUCOSE,POINT OF CARE 291 MG/DL (70-110)
[2019-07-27] MEDS: NICOTINE 14 MG/24 HOUR PATCH TD PRN (13:22)
[2019-07-27 16:11] VITALS: BP 140/73
[2019-07-27 16:41] LABS: GLUCOMETER DEV NAME(LOC) BV2S.; GLUCOSE,POINT OF CARE 317 MG/DL (70-110)
[2019-07-27 20:11] VITALS: BP 142/88
[2019-07-27] MEDS: INSULIN GLARGINE,HUM.REC.ANLOG 100 UNITS/ML SQ SCH (20:55)
[2019-07-27 21:10] LABS: GLUCOMETER DEV NAME(LOC) BV2S.; GLUCOSE,POINT OF CARE 196 MG/DL (70-110)
[2019-07-28 06:22] VITALS: BP 127/73
[2019-07-28] MEDS: MetFORMIN HCL 500 MG TABLET PO SCH ×2 (06:33→16:50)
[2019-07-28] MEDS: INSULIN LISPRO 100 UNITS/ML SQ PRN ×3 (06:33→16:53)
[2019-07-28 06:36] LABS: GLUCOMETER DEV NAME(LOC) BV2S.; GLUCOSE,POINT OF CARE 176 MG/DL (70-110)
[2019-07-28 08:12] VITALS: BP 134/81
[2019-07-28] MEDS: LISINOPRIL 10 MG TABLET PO SCH (08:16)
[2019-07-28] MEDS: SERTRALINE HCL 50 MG TABLET PO SCH (08:16)
[2019-07-28 11:26] LABS: GLUCOMETER DEV NAME(LOC) BV2S.; GLUCOSE,POINT OF CARE 235 MG/DL (70-110)
[2019-07-28 12:07] VITALS: BP 128/78
[2019-07-28] MEDS: MAG HYDROX/AL HYDROX/SIMETH ES 30 ML SUSPENSION UDCUP PO PRN (12:07)
[2019-07-28] MEDS: IBUPROFEN 400 MG TABLET PO PRN (12:08)
[2019-07-28] MEDS ORDERED: INSLAN SQ (12:23)
[2019-07-28] MEDS ORDERED: [UNRECOGNIZED DRUG - CODE] (12:23)
[2019-07-28] MEDS ORDERED: LISI-661 PO (12:23)
[2019-07-28] MEDS ORDERED: SERT50TA12 PO (12:31)
[2019-07-28] MEDS ORDERED: OLAN10TA3 PO (12:31)
[2019-07-28 16:09] VITALS: BP 140/79
[2019-07-28 18:41] LABS: GLUCOMETER DEV NAME(LOC) BV2S.; GLUCOSE,POINT OF CARE 297 MG/DL (70-110)
== END 2019-07-28 18:30 | disposition home or self-care (01) | DRG 750 ==
LOC: B3A 20:48 → B2S 07-26 09:25
PROVIDERS: ATTEND Psychiatry & Neurology Child & Adolescent Psychiatry
DX: F25.1 Schizoaffective disorder, depressive type (principal); R45.851 Suicidal ideations; E11.9 Type 2 diabetes mellitus without complications; F10.10 Alcohol abuse, uncomplicated; Y90.9 Presence of alcohol in blood, level not specified; I10 Essential (primary) hypertension; Z59.0 Homelessness; Z91.5 Personal history of self-harm; Z79.4 Long term (current) use of insulin
CPT/HCPCS: 83036; 84439; 84443; 87081; J1815

== ENCOUNTER 2019-10-23 17:17 | Inpatient (IN) | payer MEDICAID, OTHER ==
[~2019-10-23] VITALS: Ht 180.3 cm; Wt 118.8 kg
[~2019-10-23 17:17] MED LIST changes: +LISI-661 PO; +OLAN10TA3 PO; -OLAN5TAB2 PO; -OLAN5TAB27 PO; +SERT50TA12 PO; +[UNRECOGNIZED DRUG - CODE]
[2019-10-23 21:44] LABS: BASOPHILS % (AUTO) 0.6 % (0.0-2.0); HEMATOCRIT 44.3 % (41-53); HEMOGLOBIN 15.6 g/dL (13.5-17.5); LYMPHOCYTES # (AUTO) 1.1 K/uL (1.0-4.8); LYMPHOCYTES % (AUTO) 12.3 % (22.0-44.0); MEAN CORPUSCULAR HEMOGLOBIN 29.8 pg (26.0-34.0); MEAN CORPUSCULAR HGB CONC 35.1 G/dL (31.0-37.0); MEAN CORPUSCULAR VOLUME 85 fL (80-100); MONOCYTES # (AUTO) 0.6 K/uL (0.1-1.0); MONOCYTES % (AUTO) 7.3 % (2.0-9.0); NEUTROPHILS # (AUTO) 6.7 K/uL (1.8-7.7); NEUTROPHILS % (AUTO) 77.8 % (40.0-70.0); PLATELET COUNT (AUTO) 238 K/uL (150-450); RED BLOOD CELL COUNT(AUTO) 5.23 MIL/uL (4.50-5.90); RED CELL DISTRIBUTION WIDTH 13.5 % (11.5-14.5)
[2019-10-23 21:56] LABS: GLUCOSE,POINT OF CARE 317 MG/DL (70-110)
[2019-10-23 22:10] LABS: AMPHET/METH SCREEN,URINE NEGATIVE (NEGATIVE); BARBITURATE SCREEN, URINE NEGATIVE (NEGATIVE); BENZODIAZEPINES SCREEN,URINE NEGATIVE (NEGATIVE); CANNABINOID SCREEN,URINE NEGATIVE (NEGATIVE); COCAINE SCREEN,URINE NEGATIVE (NEGATIVE); METHADONE SCREEN, URINE NEGATIVE (NEGATIVE); OPIATE SCREEN,URINE NEGATIVE (NEGATIVE); PHENCYCLIDINE SCREEN,URINE NEGATIVE (NEGATIVE)
[2019-10-23 22:19] LABS: SALICYLATE 1.9 mg/dL (2.8-20.0)
[2019-10-23 22:20] LABS: ANION GAP 12 mmol/L (8-16); CALCIUM, TOTAL 9.9 mg/dL (8.8-10.5); CARBON DIOXIDE 25 mmol/L (22-29); CHLORIDE 97 mmol/L (98-107); CREATININE 1.03 mg/dL (0.60-1.30); GLOMERULAR FILTR. RATE CALC > 60 mL/min (>60); GLUCOSE,RANDOM 324 mg/dL (70-110); POTASSIUM 4.4 mmol/L (3.5-5.1); SODIUM SERUM 134 mmol/L (136-145); UREA NITROGEN, BLOOD 13 mg/dL (7-18)
[2019-10-23 22:26] LABS: ALANINE AMINOTRANSFERASE 116 U/L (12-78); ALBUMIN 4.2 g/dL (3.4-5.0); ALKALINE PHOSPHATASE 80 U/L (46-116); ASPARTATE AMINOTRANSFERASE 42 U/L (15-37); BILIRUBIN,TOTAL 0.6 mg/dL (0.1-1.0)
[2019-10-23 22:27] LABS: ACETAMINOPHEN < 2 mcg/mL (10-30)
[2019-10-23] MEDS ORDERED: INSULIN LISPRO 100 UNITS/ML SQ ONE (23:15)
[2019-10-23] MEDS ORDERED: ZOLPIDEM TARTRATE 10 MG TABLET PO PRN (23:45)
[2019-10-24 00:27] LABS: GLUCOSE,POINT OF CARE 311 MG/DL (70-110)
[2019-10-24 02:14] LABS: GLUCOMETER DEV NAME(LOC) BV2S.; GLUCOSE,POINT OF CARE 306 MG/DL (70-110)
[2019-10-24 02:16] VITALS: BP 160/92
[2019-10-24] MEDS ORDERED: INFLUENZA VIRUS VACCINE QVS 2019-20 (3YR+)/PF 60 MCG/0.5 ML SYRINGE IM ONE (03:30)
[2019-10-24] MEDS: MetFORMIN HCL 500 MG TABLET PO SCH ×2 (06:38→17:03)
[2019-10-24 07:13] LABS: CHOL/HDL RATIO 5.2 (4.2-7.3)
[2019-10-24] MEDS: LISINOPRIL 10 MG TABLET PO SCH ×2 (08:03→17:05)
[2019-10-24] MEDS ORDERED: GLUCAGON,HUMAN RECOMBINANT 1 MG VIAL IM PRN (08:15)
[2019-10-24 08:18] VITALS: BP 130/69
[2019-10-24 10:57] LABS: GLUCOMETER DEV NAME(LOC) BV2S.; GLUCOSE,POINT OF CARE 396 MG/DL (70-110)
[2019-10-24] MEDS: INSULIN LISPRO 100 UNITS/ML SQ PRN ×3 (11:09→21:24)
[2019-10-24] MEDS ORDERED: NICOTINE POLACRILEX 2 MG GUM CHEW PRN (13:45)
[2019-10-24] MEDS: ASPIRIN 325 MG TABLET PO SCH (14:25)
[2019-10-24 16:50] VITALS: BP 134/74
[2019-10-24] MEDS: VIT A,C & E/LUTEIN/MINERALS TABLET PO SCH (17:03)
[2019-10-24 17:40] LABS: GLUCOMETER DEV NAME(LOC) BV2S.; GLUCOSE,POINT OF CARE 375 MG/DL (70-110)
[2019-10-24] MEDS: OLANZapine 10 MG TABLET PO SCH (20:56)
[2019-10-24] MEDS ORDERED: DIVALPROEX SODIUM 250 MG DR TABLET PO SCH (21:00)
[2019-10-24] MEDS ORDERED: INSULIN GLARGINE,HUM.REC.ANLOG 100 UNITS/ML SQ SCH (21:00)
[2019-10-24 21:21] LABS: GLUCOMETER DEV NAME(LOC) BV2S.; GLUCOSE,POINT OF CARE 237 MG/DL (70-110)
[2019-10-25] MEDS ORDERED: PNEUMOCOCCAL VACCINE POLYVALENT 0.5 ML VIAL [PPSV23] IM ONE (00:30)
[2019-10-25 00:50] VITALS: BP 140/80
[2019-10-25 06:29] LABS: GLUCOMETER DEV NAME(LOC) BV2S.; GLUCOSE,POINT OF CARE 279 MG/DL (70-110)
[2019-10-25] MEDS: MetFORMIN HCL 500 MG TABLET PO SCH ×2 (07:09→16:07)
[2019-10-25] MEDS: INSULIN LISPRO 100 UNITS/ML SQ PRN ×4 (07:10→20:55)
[2019-10-25 08:07] VITALS: BP 136/77
[2019-10-25] MEDS: ASPIRIN 325 MG TABLET PO SCH (08:27)
[2019-10-25] MEDS: LISINOPRIL 10 MG TABLET PO SCH ×2 (08:27→16:07)
[2019-10-25] MEDS: VIT A,C & E/LUTEIN/MINERALS TABLET PO SCH (08:27)
[2019-10-25 10:56] LABS: GLUCOMETER DEV NAME(LOC) BV2S.; GLUCOSE,POINT OF CARE 250 MG/DL (70-110)
[2019-10-25] MEDS: HYPROMELLOSE 0.5% 15 ML OPHTHALMIC SOLUTION OU PRN ×2 (15:24→20:04)
[2019-10-25] MEDS: DIVALPROEX SODIUM 250 MG DR TABLET PO SCH (16:06)
[2019-10-25] MEDS: LORazepam 1 MG TABLET PO PRN (16:06)
[2019-10-25] MEDS: HALOPERIDOL 5 MG TABLET PO PRN (16:06)
[2019-10-25 16:30] VITALS: BP 113/63
[2019-10-25 20:50] LABS: GLUCOMETER DEV NAME(LOC) BV2S.; GLUCOSE,POINT OF CARE 333 MG/DL (70-110)
[2019-10-25 20:54] LABS: GLUCOMETER DEV NAME(LOC) BV2S.; GLUCOSE,POINT OF CARE 303 MG/DL (70-110)
[2019-10-25] MEDS: OLANZapine 10 MG TABLET PO SCH (20:57)
[2019-10-25] MEDS: INSULIN GLARGINE,HUM.REC.ANLOG 100 UNITS/ML SQ SCH (20:59)
[2019-10-26] VITALS: BP 122/63
[2019-10-26] MEDS: HYPROMELLOSE 0.5% 15 ML OPHTHALMIC SOLUTION OU PRN ×4 (00:09→19:40)
[2019-10-26] MEDS: INSULIN LISPRO 100 UNITS/ML SQ PRN ×4 (07:03→21:00)
[2019-10-26] MEDS: MetFORMIN HCL 500 MG TABLET PO SCH ×2 (07:04→16:29)
[2019-10-26 07:10] LABS: GLUCOMETER DEV NAME(LOC) BV2S.; GLUCOSE,POINT OF CARE 250 MG/DL (70-110)
[2019-10-26] MEDS: LISINOPRIL 10 MG TABLET PO SCH ×2 (09:18→16:29)
[2019-10-26] MEDS: VIT A,C & E/LUTEIN/MINERALS TABLET PO SCH (09:18)
[2019-10-26] MEDS: ASPIRIN 325 MG TABLET PO SCH (09:18)
[2019-10-26] MEDS: DIVALPROEX SODIUM 250 MG DR TABLET PO SCH ×2 (09:18→16:29)
[2019-10-26 11:19] VITALS: BP 126/70
[2019-10-26 11:45] LABS: GLUCOMETER DEV NAME(LOC) BV2S.; GLUCOSE,POINT OF CARE 299 MG/DL (70-110)
[2019-10-26 16:03] VITALS: BP 146/89
[2019-10-26 16:18] LABS: GLUCOMETER DEV NAME(LOC) BV2S.; GLUCOSE,POINT OF CARE 317 MG/DL (70-110)
[2019-10-26 20:12] LABS: GLUCOMETER DEV NAME(LOC) BV2S.; GLUCOSE,POINT OF CARE 309 MG/DL (70-110)
[2019-10-26] MEDS: OLANZapine 10 MG TABLET PO SCH (20:14)
[2019-10-26] MEDS: INSULIN GLARGINE,HUM.REC.ANLOG 100 UNITS/ML SQ SCH (21:03)
[2019-10-27 01:52] VITALS: BP 155/81
[2019-10-27 06:32] LABS: GLUCOMETER DEV NAME(LOC) BV3S.; GLUCOSE,POINT OF CARE 342 MG/DL (70-110)
[2019-10-27] MEDS: MetFORMIN HCL 500 MG TABLET PO SCH ×2 (06:57→17:37)
[2019-10-27] MEDS: INSULIN LISPRO 100 UNITS/ML SQ PRN ×3 (07:00→20:55)
[2019-10-27 08:15] VITALS: BP 119/69
[2019-10-27] MEDS: VIT A,C & E/LUTEIN/MINERALS TABLET PO SCH (08:29)
[2019-10-27] MEDS: ASPIRIN 325 MG TABLET PO SCH (08:30)
[2019-10-27] MEDS: DIVALPROEX SODIUM 250 MG DR TABLET PO SCH ×2 (08:30→17:36)
[2019-10-27] MEDS: LISINOPRIL 10 MG TABLET PO SCH ×2 (08:30→17:37)
[2019-10-27] MEDS: HYPROMELLOSE 0.5% 15 ML OPHTHALMIC SOLUTION OU PRN ×4 (11:20→21:16)
[2019-10-27] MEDS: HALOPERIDOL 5 MG TABLET PO PRN (13:52)
[2019-10-27 16:03] VITALS: BP 120/60
[2019-10-27 16:42] LABS: GLUCOMETER DEV NAME(LOC) BV3S.; GLUCOSE,POINT OF CARE 370 MG/DL (70-110)
[2019-10-27] MEDS: OLANZapine 10 MG TABLET PO SCH (20:53)
[2019-10-27 20:54] LABS: GLUCOMETER DEV NAME(LOC) BV3S.; GLUCOSE,POINT OF CARE 358 MG/DL (70-110)
[2019-10-27] MEDS: INSULIN GLARGINE,HUM.REC.ANLOG 100 UNITS/ML SQ SCH (20:55)
[2019-10-28 00:37] VITALS: BP 145/78
[2019-10-28 06:48] LABS: GLUCOMETER DEV NAME(LOC) BV3S.; GLUCOSE,POINT OF CARE 228 MG/DL (70-110)
[2019-10-28] MEDS: MetFORMIN HCL 500 MG TABLET PO SCH ×2 (07:00→16:49)
[2019-10-28] MEDS: INSULIN LISPRO 100 UNITS/ML SQ PRN ×4 (07:02→21:11)
[2019-10-28] MEDS: HYPROMELLOSE 0.5% 15 ML OPHTHALMIC SOLUTION OU PRN ×2 (07:04→21:53)
[2019-10-28 08:06] VITALS: BP 107/60
[2019-10-28] MEDS: DIVALPROEX SODIUM 250 MG DR TABLET PO SCH ×2 (09:21→16:49)
[2019-10-28] MEDS: ASPIRIN 325 MG TABLET PO SCH (09:21)
[2019-10-28] MEDS: LISINOPRIL 10 MG TABLET PO SCH ×2 (09:21→16:49)
[2019-10-28] MEDS: VIT A,C & E/LUTEIN/MINERALS TABLET PO SCH (09:22)
[2019-10-28] MEDS: INSULIN GLARGINE,HUM.REC.ANLOG 100 UNITS/ML SQ SCH ×2 (09:36→21:11)
[2019-10-28 09:59] LABS: GLUCOMETER DEV NAME(LOC) BV3S.; GLUCOSE,POINT OF CARE 293 MG/DL (70-110)
[2019-10-28 12:44] LABS: GLUCOMETER DEV NAME(LOC) BV3S.; GLUCOSE,POINT OF CARE 268 MG/DL (70-110)
[2019-10-28 16:02] VITALS: BP 134/88
[2019-10-28 17:32] LABS: GLUCOMETER DEV NAME(LOC) BV3S.; GLUCOSE,POINT OF CARE 237 MG/DL (70-110)
[2019-10-28] MEDS: OLANZapine 10 MG TABLET PO SCH (21:07)
[2019-10-28 21:27] LABS: GLUCOMETER DEV NAME(LOC) BV3S.; GLUCOSE,POINT OF CARE 330 MG/DL (70-110)
[2019-10-29] MEDS: HYPROMELLOSE 0.5% 15 ML OPHTHALMIC SOLUTION OU PRN ×3 (00:26→20:47)
[2019-10-29 05:48] VITALS: BP 150/95
[2019-10-29 05:58] LABS: GLUCOMETER DEV NAME(LOC) BV3S.; GLUCOSE,POINT OF CARE 268 MG/DL (70-110)
[2019-10-29] MEDS: MetFORMIN HCL 500 MG TABLET PO SCH ×2 (06:41→16:58)
[2019-10-29] MEDS: INSULIN LISPRO 100 UNITS/ML SQ PRN ×4 (06:57→21:02)
[2019-10-29] MEDS: ASPIRIN 325 MG TABLET PO SCH (08:14)
[2019-10-29] MEDS: VIT A,C & E/LUTEIN/MINERALS TABLET PO SCH (08:15)
[2019-10-29] MEDS: DIVALPROEX SODIUM 250 MG DR TABLET PO SCH ×2 (08:15→16:58)
[2019-10-29] MEDS: LISINOPRIL 10 MG TABLET PO SCH ×2 (08:15→16:58)
[2019-10-29] MEDS: INSULIN GLARGINE,HUM.REC.ANLOG 100 UNITS/ML SQ SCH ×2 (08:32→21:02)
[2019-10-29 08:34] VITALS: BP 141/72
[2019-10-29 08:40] LABS: GLUCOMETER DEV NAME(LOC) BV3S.; GLUCOSE,POINT OF CARE 344 MG/DL (70-110)
[2019-10-29 11:24] LABS: GLUCOMETER DEV NAME(LOC) BV3S.; GLUCOSE,POINT OF CARE 350 MG/DL (70-110)
[2019-10-29 17:06] VITALS: BP 142/68
[2019-10-29 17:10] LABS: GLUCOMETER DEV NAME(LOC) BV3S.; GLUCOSE,POINT OF CARE 290 MG/DL (70-110)
[2019-10-29] MEDS: MAG HYDROX/AL HYDROX/SIMETH ES 30 ML SUSPENSION UDCUP PO PRN (18:21)
[2019-10-29] MEDS: OLANZapine 10 MG TABLET PO SCH (20:55)
[2019-10-29 21:24] LABS: GLUCOMETER DEV NAME(LOC) BV3S.; GLUCOSE,POINT OF CARE 335 MG/DL (70-110)
[2019-10-30] MEDS: HYPROMELLOSE 0.5% 15 ML OPHTHALMIC SOLUTION OU PRN ×6 (05:10→21:03)
[2019-10-30 06:14] LABS: GLUCOMETER DEV NAME(LOC) BV3S.; GLUCOSE,POINT OF CARE 298 MG/DL (70-110)
[2019-10-30 06:39] VITALS: BP 144/80
[2019-10-30] MEDS: MetFORMIN HCL 500 MG TABLET PO SCH ×2 (07:00→16:58)
[2019-10-30] MEDS: INSULIN LISPRO 100 UNITS/ML SQ PRN ×4 (07:01→20:58)
[2019-10-30 08:38] VITALS: BP 133/69
[2019-10-30] MEDS: DIVALPROEX SODIUM 250 MG DR TABLET PO SCH ×2 (08:58→16:58)
[2019-10-30] MEDS: LISINOPRIL 10 MG TABLET PO SCH ×2 (08:58→16:59)
[2019-10-30] MEDS: VIT A,C & E/LUTEIN/MINERALS TABLET PO SCH (08:58)
[2019-10-30] MEDS: ASPIRIN 325 MG TABLET PO SCH (08:59)
[2019-10-30] MEDS: INSULIN GLARGINE,HUM.REC.ANLOG 100 UNITS/ML SQ SCH ×2 (09:06→20:58)
[2019-10-30 12:08] LABS: GLUCOMETER DEV NAME(LOC) BV3S.; GLUCOSE,POINT OF CARE 275 MG/DL (70-110)
[2019-10-30 16:00] VITALS: BP 137/76
[2019-10-30 17:26] LABS: GLUCOMETER DEV NAME(LOC) BV3S.; GLUCOSE,POINT OF CARE 271 MG/DL (70-110)
[2019-10-30] MEDS: OLANZapine 10 MG TABLET PO SCH (20:50)
[2019-10-30 21:21] LABS: GLUCOMETER DEV NAME(LOC) BV3S.; GLUCOSE,POINT OF CARE 335 MG/DL (70-110)
[2019-10-31] MEDS: HYPROMELLOSE 0.5% 15 ML OPHTHALMIC SOLUTION OU PRN ×4 (01:35→20:24)
[2019-10-31] MEDS: MetFORMIN HCL 500 MG TABLET PO SCH ×2 (07:02→16:59)
[2019-10-31] MEDS: INSULIN LISPRO 100 UNITS/ML SQ PRN ×4 (07:06→20:22)
[2019-10-31 07:08] LABS: GLUCOMETER DEV NAME(LOC) BV2S.; GLUCOSE,POINT OF CARE 250 MG/DL (70-110)
[2019-10-31] MEDS: OMEGA-3/DHA/EPA/FISH OIL 1,000 MG CAPSULE PO SCH (08:44)
[2019-10-31] MEDS: ASPIRIN 325 MG TABLET PO SCH (08:44)
[2019-10-31] MEDS: DIVALPROEX SODIUM 250 MG DR TABLET PO SCH ×2 (08:44→16:59)
[2019-10-31] MEDS: LISINOPRIL 10 MG TABLET PO SCH ×2 (08:44→16:59)
[2019-10-31] MEDS: VIT A,C & E/LUTEIN/MINERALS TABLET PO SCH (08:44)
[2019-10-31 09:21] VITALS: BP 135/79
[2019-10-31] MEDS: INSULIN GLARGINE,HUM.REC.ANLOG 100 UNITS/ML SQ SCH ×2 (09:29→20:21)
[2019-10-31 11:54] LABS: GLUCOMETER DEV NAME(LOC) BV2S.; GLUCOSE,POINT OF CARE 296 MG/DL (70-110)
[2019-10-31 16:11] LABS: GLUCOMETER DEV NAME(LOC) BV2S.; GLUCOSE,POINT OF CARE 346 MG/DL (70-110)
[2019-10-31 16:40] VITALS: BP 110/60
[2019-10-31 20:20] LABS: GLUCOMETER DEV NAME(LOC) BV2S.; GLUCOSE,POINT OF CARE 379 MG/DL (70-110)
[2019-10-31] MEDS: OLANZapine 10 MG TABLET PO SCH (20:24)
[2019-11-01 00:56] VITALS: BP 140/78
[2019-11-01] MEDS: HYPROMELLOSE 0.5% 15 ML OPHTHALMIC SOLUTION OU PRN (05:58)
[2019-11-01] MEDS: MAG HYDROX/AL HYDROX/SIMETH ES 30 ML SUSPENSION UDCUP PO PRN (05:59)
[2019-11-01 06:23] LABS: GLUCOMETER DEV NAME(LOC) BV2S.; GLUCOSE,POINT OF CARE 236 MG/DL (70-110)
[2019-11-01] MEDS: MetFORMIN HCL 500 MG TABLET PO SCH ×2 (06:33→16:29)
[2019-11-01] MEDS: INSULIN LISPRO 100 UNITS/ML SQ PRN ×4 (06:38→20:44)
[2019-11-01] MEDS: OMEGA-3/DHA/EPA/FISH OIL 1,000 MG CAPSULE PO SCH (08:13)
[2019-11-01] MEDS: VIT A,C & E/LUTEIN/MINERALS TABLET PO SCH (08:13)
[2019-11-01] MEDS: ASPIRIN 325 MG TABLET PO SCH (08:13)
[2019-11-01] MEDS: LORazepam 1 MG TABLET PO PRN ×2 (08:13→16:29)
[2019-11-01] MEDS: LISINOPRIL 10 MG TABLET PO SCH ×2 (08:14→16:29)
[2019-11-01] MEDS: DIVALPROEX SODIUM 250 MG DR TABLET PO SCH ×2 (08:14→16:29)
[2019-11-01] MEDS: INSULIN GLARGINE,HUM.REC.ANLOG 100 UNITS/ML SQ SCH ×2 (08:46→20:44)
[2019-11-01 08:58] LABS: GLUCOMETER DEV NAME(LOC) BV2S.; GLUCOSE,POINT OF CARE 306 MG/DL (70-110)
[2019-11-01 11:12] LABS: GLUCOMETER DEV NAME(LOC) BV2S.; GLUCOSE,POINT OF CARE 293 MG/DL (70-110)
[2019-11-01 16:00] VITALS: BP 117/62
[2019-11-01] MEDS: HALOPERIDOL 5 MG TABLET PO PRN (16:29)
[2019-11-01 16:30] LABS: GLUCOMETER DEV NAME(LOC) BV2S.; GLUCOSE,POINT OF CARE 269 MG/DL (70-110)
[2019-11-01] MEDS: GuaiFENesin SR 600 MG ER TABLET PO SCH (16:30)
[2019-11-01] MEDS: OLANZapine 10 MG TABLET PO SCH (20:44)
[2019-11-02] MEDS: HYPROMELLOSE 0.5% 15 ML OPHTHALMIC SOLUTION OU PRN ×2 (04:07→11:16)
[2019-11-02 04:25] VITALS: BP 114/68
[2019-11-02 05:40] LABS: GLUCOMETER DEV NAME(LOC) BV2S.; GLUCOSE,POINT OF CARE 274 MG/DL (70-110)
[2019-11-02 06:25] LABS: GLUCOMETER DEV NAME(LOC) BV2S.; GLUCOSE,POINT OF CARE 216 MG/DL (70-110)
[2019-11-02] MEDS: MetFORMIN HCL 500 MG TABLET PO SCH ×2 (06:39→16:51)
[2019-11-02] MEDS: INSULIN LISPRO 100 UNITS/ML SQ PRN ×4 (06:40→20:50)
[2019-11-02] MEDS: ASPIRIN 325 MG TABLET PO SCH (08:52)
[2019-11-02] MEDS: OMEGA-3/DHA/EPA/FISH OIL 1,000 MG CAPSULE PO SCH (08:52)
[2019-11-02] MEDS: DIVALPROEX SODIUM 250 MG DR TABLET PO SCH ×2 (08:52→16:50)
[2019-11-02] MEDS: GuaiFENesin SR 600 MG ER TABLET PO SCH ×2 (08:52→16:51)
[2019-11-02] MEDS: LISINOPRIL 10 MG TABLET PO SCH ×2 (08:53→16:51)
[2019-11-02] MEDS: VIT A,C & E/LUTEIN/MINERALS TABLET PO SCH (08:53)
[2019-11-02] MEDS: INSULIN GLARGINE,HUM.REC.ANLOG 100 UNITS/ML SQ SCH ×2 (09:02→20:50)
[2019-11-02 13:12] LABS: GLUCOMETER DEV NAME(LOC) BV2S.; GLUCOSE,POINT OF CARE 227 MG/DL (70-110)
[2019-11-02 16:34] LABS: GLUCOMETER DEV NAME(LOC) BV2S.; GLUCOSE,POINT OF CARE 248 MG/DL (70-110)
[2019-11-02 16:44] VITALS: BP 104/60
[2019-11-02 20:32] LABS: GLUCOMETER DEV NAME(LOC) BV2S.; GLUCOSE,POINT OF CARE 296 MG/DL (70-110)
[2019-11-02] MEDS: OLANZapine 10 MG TABLET PO SCH (20:32)
[2019-11-03 00:45] VITALS: BP 110/78
[2019-11-03] MEDS: INSULIN LISPRO 100 UNITS/ML SQ PRN ×4 (06:35→20:27)
[2019-11-03 06:58] LABS: GLUCOMETER DEV NAME(LOC) BV2S.; GLUCOSE,POINT OF CARE 182 MG/DL (70-110)
[2019-11-03] MEDS: MetFORMIN HCL 500 MG TABLET PO SCH ×2 (07:25→16:15)
[2019-11-03 08:57] VITALS: BP 139/81
[2019-11-03] MEDS: ASPIRIN 325 MG TABLET PO SCH (08:58)
[2019-11-03] MEDS: VIT A,C & E/LUTEIN/MINERALS TABLET PO SCH (08:58)
[2019-11-03] MEDS: GuaiFENesin SR 600 MG ER TABLET PO SCH ×2 (08:58→16:15)
[2019-11-03] MEDS: DIVALPROEX SODIUM 250 MG DR TABLET PO SCH ×2 (08:58→16:15)
[2019-11-03] MEDS: OMEGA-3/DHA/EPA/FISH OIL 1,000 MG CAPSULE PO SCH (08:58)
[2019-11-03] MEDS: LISINOPRIL 10 MG TABLET PO SCH ×2 (08:58→16:15)
[2019-11-03] MEDS: INSULIN GLARGINE,HUM.REC.ANLOG 100 UNITS/ML SQ SCH ×2 (09:07→20:27)
[2019-11-03 11:29] LABS: GLUCOMETER DEV NAME(LOC) BV2S.; GLUCOSE,POINT OF CARE 318 MG/DL (70-110)
[2019-11-03] MEDS: HYPROMELLOSE 0.5% 15 ML OPHTHALMIC SOLUTION OU PRN (13:52)
[2019-11-03 16:22] LABS: GLUCOMETER DEV NAME(LOC) BV2S.; GLUCOSE,POINT OF CARE 249 MG/DL (70-110)
[2019-11-03 16:45] VITALS: BP 124/71
[2019-11-03] MEDS: OLANZapine 10 MG TABLET PO SCH (20:12)
[2019-11-03 20:21] LABS: GLUCOMETER DEV NAME(LOC) BV2S.; GLUCOSE,POINT OF CARE 302 MG/DL (70-110)
[2019-11-04] MEDS: HYPROMELLOSE 0.5% 15 ML OPHTHALMIC SOLUTION OU PRN ×6 (00:06→23:36)
[2019-11-04] MEDS: MAG HYDROX/AL HYDROX/SIMETH ES 30 ML SUSPENSION UDCUP PO PRN ×2 (00:06→13:52)
[2019-11-04 00:44] VITALS: BP 144/96
[2019-11-04] MEDS: MetFORMIN HCL 500 MG TABLET PO SCH ×2 (06:35→16:34)
[2019-11-04] MEDS: DIVALPROEX SODIUM 250 MG DR TABLET PO SCH ×2 (08:24→16:35)
[2019-11-04] MEDS: LISINOPRIL 10 MG TABLET PO SCH ×2 (08:24→16:35)
[2019-11-04] MEDS: ASPIRIN 325 MG TABLET PO SCH (08:24)
[2019-11-04] MEDS: OMEGA-3/DHA/EPA/FISH OIL 1,000 MG CAPSULE PO SCH (08:25)
[2019-11-04] MEDS: GuaiFENesin SR 600 MG ER TABLET PO SCH ×2 (08:25→16:35)
[2019-11-04] MEDS: VIT A,C & E/LUTEIN/MINERALS TABLET PO SCH (08:26)
[2019-11-04] MEDS: INSULIN GLARGINE,HUM.REC.ANLOG 100 UNITS/ML SQ SCH ×2 (08:50→20:28)
[2019-11-04 09:08] VITALS: BP 119/68
[2019-11-04 11:12] LABS: GLUCOMETER DEV NAME(LOC) BV2S.; GLUCOSE,POINT OF CARE 237 MG/DL (70-110)
[2019-11-04] MEDS: INSULIN LISPRO 100 UNITS/ML SQ PRN ×3 (12:38→20:28)
[2019-11-04 16:21] VITALS: BP 140/79
[2019-11-04 16:44] LABS: GLUCOMETER DEV NAME(LOC) BV2S.; GLUCOSE,POINT OF CARE 231 MG/DL (70-110)
[2019-11-04] MEDS: OLANZapine 10 MG TABLET PO SCH (20:24)
[2019-11-04 20:51] LABS: GLUCOMETER DEV NAME(LOC) BV2S.; GLUCOSE,POINT OF CARE 295 MG/DL (70-110)
[2019-11-05 01:11] VITALS: BP 166/90
[2019-11-05 06:23] LABS: GLUCOMETER DEV NAME(LOC) BV2S.; GLUCOSE,POINT OF CARE 272 MG/DL (70-110)
[2019-11-05] MEDS: INSULIN LISPRO 100 UNITS/ML SQ PRN ×4 (06:37→21:26)
[2019-11-05 06:38] VITALS: BP 154/90
[2019-11-05] MEDS: MetFORMIN HCL 500 MG TABLET PO SCH ×2 (06:39→17:09)
[2019-11-05] MEDS: LISINOPRIL 10 MG TABLET PO SCH ×2 (08:32→17:09)
[2019-11-05] MEDS: GuaiFENesin SR 600 MG ER TABLET PO SCH ×2 (08:32→17:09)
[2019-11-05] MEDS: OMEGA-3/DHA/EPA/FISH OIL 1,000 MG CAPSULE PO SCH (08:32)
[2019-11-05] MEDS: ASPIRIN 325 MG TABLET PO SCH (08:33)
[2019-11-05] MEDS: DIVALPROEX SODIUM 250 MG DR TABLET PO SCH ×2 (08:33→17:09)
[2019-11-05] MEDS: VIT A,C & E/LUTEIN/MINERALS TABLET PO SCH (08:33)
[2019-11-05 08:39] VITALS: BP 149/75
[2019-11-05] MEDS: INSULIN GLARGINE,HUM.REC.ANLOG 100 UNITS/ML SQ SCH ×2 (08:53→21:25)
[2019-11-05 11:44] LABS: GLUCOMETER DEV NAME(LOC) BV2S.; GLUCOSE,POINT OF CARE 306 MG/DL (70-110)
[2019-11-05 16:25] VITALS: BP 116/60
[2019-11-05 17:07] LABS: GLUCOMETER DEV NAME(LOC) BV2S.; GLUCOSE,POINT OF CARE 240 MG/DL (70-110)
[2019-11-05] MEDS: MAG HYDROX/AL HYDROX/SIMETH ES 30 ML SUSPENSION UDCUP PO PRN (18:14)
[2019-11-05] MEDS: HYPROMELLOSE 0.5% 15 ML OPHTHALMIC SOLUTION OU PRN (18:14)
[2019-11-05 20:38] LABS: GLUCOMETER DEV NAME(LOC) BV2S.; GLUCOSE,POINT OF CARE 348 MG/DL (70-110)
[2019-11-05] MEDS: OLANZapine 10 MG TABLET PO SCH (20:59)
[2019-11-06] MEDS: HYPROMELLOSE 0.5% 15 ML OPHTHALMIC SOLUTION OU PRN ×2 (02:36→23:55)
[2019-11-06 06:28] LABS: GLUCOMETER DEV NAME(LOC) BV2S.; GLUCOSE,POINT OF CARE 241 MG/DL (70-110)
[2019-11-06] MEDS: MetFORMIN HCL 500 MG TABLET PO SCH ×2 (06:51→17:11)
[2019-11-06] MEDS: INSULIN LISPRO 100 UNITS/ML SQ PRN ×4 (06:52→21:10)
[2019-11-06] MEDS: ASPIRIN 325 MG TABLET PO SCH (08:34)
[2019-11-06] MEDS: OMEGA-3/DHA/EPA/FISH OIL 1,000 MG CAPSULE PO SCH (08:34)
[2019-11-06] MEDS: LISINOPRIL 10 MG TABLET PO SCH ×2 (08:34→17:12)
[2019-11-06] MEDS: DIVALPROEX SODIUM 250 MG DR TABLET PO SCH ×2 (08:34→17:11)
[2019-11-06] MEDS: GuaiFENesin SR 600 MG ER TABLET PO SCH ×2 (08:34→17:12)
[2019-11-06] MEDS: VIT A,C & E/LUTEIN/MINERALS TABLET PO SCH (08:37)
[2019-11-06 08:43] VITALS: BP 127/96
[2019-11-06] MEDS ORDERED: INSULIN GLARGINE,HUM.REC.ANLOG 100 UNITS/ML SQ SCH (09:00)
[2019-11-06 11:42] LABS: GLUCOMETER DEV NAME(LOC) BV2S.; GLUCOSE,POINT OF CARE 214 MG/DL (70-110)
[2019-11-06 17:03] LABS: GLUCOMETER DEV NAME(LOC) BV2S.; GLUCOSE,POINT OF CARE 256 MG/DL (70-110)
[2019-11-06] MEDS: OLANZapine 10 MG TABLET PO SCH (20:16)
[2019-11-06 20:31] LABS: GLUCOMETER DEV NAME(LOC) BV2S.; GLUCOSE,POINT OF CARE 324 MG/DL (70-110)
[2019-11-06] MEDS: INSULIN GLARGINE,HUM.REC.ANLOG 100 UNITS/ML SQ SCH (21:11)
[2019-11-07 06:25] LABS: GLUCOMETER DEV NAME(LOC) BV2S.; GLUCOSE,POINT OF CARE 240 MG/DL (70-110)
[2019-11-07] MEDS: MetFORMIN HCL 500 MG TABLET PO SCH ×2 (06:43→16:39)
[2019-11-07] MEDS: INSULIN LISPRO 100 UNITS/ML SQ PRN ×4 (06:43→21:32)
[2019-11-07 08:25] VITALS: BP 122/63
[2019-11-07] MEDS: DIVALPROEX SODIUM 250 MG DR TABLET PO SCH ×2 (09:07→16:39)
[2019-11-07] MEDS: GuaiFENesin SR 600 MG ER TABLET PO SCH ×2 (09:07→16:39)
[2019-11-07] MEDS: ASPIRIN 325 MG TABLET PO SCH (09:07)
[2019-11-07] MEDS: OMEGA-3/DHA/EPA/FISH OIL 1,000 MG CAPSULE PO SCH (09:07)
[2019-11-07] MEDS: LISINOPRIL 10 MG TABLET PO SCH ×2 (09:08→16:39)
[2019-11-07] MEDS: VIT A,C & E/LUTEIN/MINERALS TABLET PO SCH (09:08)
[2019-11-07] MEDS: INSULIN GLARGINE,HUM.REC.ANLOG 100 UNITS/ML SQ SCH ×2 (09:17→20:52)
[2019-11-07 12:36] LABS: GLUCOMETER DEV NAME(LOC) BV2S.; GLUCOSE,POINT OF CARE 196 MG/DL (70-110)
[2019-11-07 16:08] VITALS: BP 124/65
[2019-11-07 17:10] LABS: GLUCOMETER DEV NAME(LOC) BV2S.; GLUCOSE,POINT OF CARE 240 MG/DL (70-110)
[2019-11-07] MEDS: HYPROMELLOSE 0.5% 15 ML OPHTHALMIC SOLUTION OU PRN (20:53)
[2019-11-07] MEDS ORDERED: OLANZapine 7.5 MG TABLET PO SCH (21:00)
[2019-11-07 21:03] LABS: GLUCOMETER DEV NAME(LOC) BV2S.; GLUCOSE,POINT OF CARE 274 MG/DL (70-110)
[2019-11-08] MEDS: HYPROMELLOSE 0.5% 15 ML OPHTHALMIC SOLUTION OU PRN ×3 (00:59→09:06)
[2019-11-08 02:24] VITALS: BP 140/85
[2019-11-08 06:38] LABS: GLUCOMETER DEV NAME(LOC) BV2S.; GLUCOSE,POINT OF CARE 170 MG/DL (70-110)
[2019-11-08] MEDS: INSULIN LISPRO 100 UNITS/ML SQ PRN ×4 (07:18→21:19)
[2019-11-08] MEDS: MetFORMIN HCL 500 MG TABLET PO SCH ×2 (07:18→17:25)
[2019-11-08 08:51] VITALS: BP 140/79
[2019-11-08] MEDS: VIT A,C & E/LUTEIN/MINERALS TABLET PO SCH (08:53)
[2019-11-08] MEDS: OMEGA-3/DHA/EPA/FISH OIL 1,000 MG CAPSULE PO SCH (08:53)
[2019-11-08] MEDS: ASPIRIN 325 MG TABLET PO SCH (08:53)
[2019-11-08] MEDS: LISINOPRIL 10 MG TABLET PO SCH ×2 (08:53→17:25)
[2019-11-08] MEDS: GuaiFENesin SR 600 MG ER TABLET PO SCH ×2 (08:54→17:25)
[2019-11-08] MEDS: DIVALPROEX SODIUM 250 MG DR TABLET PO SCH ×2 (08:54→17:25)
[2019-11-08] MEDS: INSULIN GLARGINE,HUM.REC.ANLOG 100 UNITS/ML SQ SCH (09:02)
[2019-11-08 09:12] LABS: GLUCOMETER DEV NAME(LOC) BV2S.; GLUCOSE,POINT OF CARE 248 MG/DL (70-110)
[2019-11-08] MEDS: MAG HYDROX/AL HYDROX/SIMETH ES 30 ML SUSPENSION UDCUP PO PRN (09:46)
[2019-11-08 11:07] LABS: GLUCOMETER DEV NAME(LOC) BV2S.; GLUCOSE,POINT OF CARE 237 MG/DL (70-110)
[2019-11-08 16:10] VITALS: BP 113/65
[2019-11-08 20:34] LABS: GLUCOMETER DEV NAME(LOC) BV2S.; GLUCOSE,POINT OF CARE 277 MG/DL (70-110)
[2019-11-08] MEDS ORDERED: INSULIN GLARGINE,HUM.REC.ANLOG 100 UNITS/ML SQ SCH (21:00)
[2019-11-08] MEDS ORDERED: OLANZapine 10 MG TABLET PO SCH (21:00)
[2019-11-09] MEDS: LORazepam 1 MG TABLET PO PRN (02:01)
[2019-11-09] MEDS: HYPROMELLOSE 0.5% 15 ML OPHTHALMIC SOLUTION OU PRN (02:05)
[2019-11-09 04:38] VITALS: BP 141/88
[2019-11-09 06:26] LABS: GLUCOMETER DEV NAME(LOC) BV2S.; GLUCOSE,POINT OF CARE 164 MG/DL (70-110)
[2019-11-09] MEDS: MetFORMIN HCL 500 MG TABLET PO SCH ×2 (07:14→17:00)
[2019-11-09] MEDS: INSULIN LISPRO 100 UNITS/ML SQ PRN ×4 (07:15→18:53)
[2019-11-09 08:26] VITALS: BP 137/90
[2019-11-09] MEDS: INSULIN GLARGINE,HUM.REC.ANLOG 100 UNITS/ML SQ SCH (08:53)
[2019-11-09 09:09] LABS: GLUCOMETER DEV NAME(LOC) BV2S.; GLUCOSE,POINT OF CARE 198 MG/DL (70-110)
[2019-11-09] MEDS: ASPIRIN 325 MG TABLET PO SCH (09:11)
[2019-11-09] MEDS: GuaiFENesin SR 600 MG ER TABLET PO SCH ×2 (09:11→17:00)
[2019-11-09] MEDS: LISINOPRIL 10 MG TABLET PO SCH ×2 (09:11→17:00)
[2019-11-09] MEDS: OMEGA-3/DHA/EPA/FISH OIL 1,000 MG CAPSULE PO SCH (09:11)
[2019-11-09] MEDS: DIVALPROEX SODIUM 250 MG DR TABLET PO SCH ×2 (09:11→17:00)
[2019-11-09] MEDS: VIT A,C & E/LUTEIN/MINERALS TABLET PO SCH (10:25)
[2019-11-09 11:25] LABS: GLUCOMETER DEV NAME(LOC) BV2S.; GLUCOSE,POINT OF CARE 186 MG/DL (70-110)
[2019-11-09] MEDS: MAG HYDROX/AL HYDROX/SIMETH ES 30 ML SUSPENSION UDCUP PO PRN (11:45)
[2019-11-09 16:22] LABS: GLUCOMETER DEV NAME(LOC) BV2S.; GLUCOSE,POINT OF CARE 261 MG/DL (70-110)
[2019-11-09 16:31] VITALS: BP 116/73
[2019-11-09] MEDS ORDERED: ASPI-629 PO (17:05)
[2019-11-09] MEDS ORDERED: OLAN10TA3 PO (17:05)
[2019-11-09] MEDS ORDERED: INSLAN SQ ×2 (17:05)
[2019-11-09] MEDS ORDERED: DIVA-76 PO (17:05)
[2019-11-09] MEDS ORDERED: OMEG-135 PO (17:05)
[2019-11-09] MEDS ORDERED: GUAIF600 PO (17:05)
[2019-11-09] MEDS ORDERED: LISI-661 PO (17:08)
== END 2019-11-09 17:30 | disposition home or self-care (01) | DRG 750 ==
LOC: EMS 17:20 → B2S 23:30 → B3A 10-26 22:24 → B2S 10-30 21:29
PROVIDERS: ADMIT Psychiatry & Neurology Psychiatry; ATTEND Psychiatry & Neurology Child & Adolescent Psychiatry
DX: F25.0 Schizoaffective disorder, bipolar type (principal); E66.01 Morbid (severe) obesity due to excess calories; R45.851 Suicidal ideations; E78.5 Hyperlipidemia, unspecified; F10.10 Alcohol abuse, uncomplicated; I10 Essential (primary) hypertension; Z79.4 Long term (current) use of insulin; F17.200 Nicotine dependence, unspecified, uncomplicated; E11.9 Type 2 diabetes mellitus without complications; Z68.36 Body mass index [BMI] 36.0-36.9, adult
CPT/HCPCS: G0480; G0481; J1815

== ENCOUNTER 2019-12-18 16:56 | Inpatient (IN) | payer MEDICAID ==
[~2019-12-18] VITALS: Ht 180.3 cm; Wt 134.0 kg
[~2019-12-18 16:56] MED LIST changes: +ASPI-629 PO; +DIVA-76 PO; +GUAIF600 PO; +OMEG-135 PO; -SERT50TA12 PO
[2019-12-18] MEDS ORDERED: ZOLPIDEM TARTRATE 10 MG TABLET PO PRN (21:15)
[2019-12-18] MEDS ORDERED: HALOPERIDOL 5 MG TABLET PO PRN (21:15)
[2019-12-18] MEDS ORDERED: LORazepam 2 MG TABLET PO PRN (21:15)
[2019-12-19 00:52] VITALS: BP 138/76
[2019-12-19] MEDS: MetFORMIN HCL 500 MG TABLET PO SCH ×2 (07:09→16:49)
[2019-12-19 08:16] VITALS: BP 125/78
[2019-12-19] MEDS: GuaiFENesin SR 600 MG ER TABLET PO SCH ×2 (09:00→16:55)
[2019-12-19] MEDS: ASPIRIN 325 MG TABLET PO SCH (09:38)
[2019-12-19] MEDS: LISINOPRIL 10 MG TABLET PO SCH ×2 (09:38→16:49)
[2019-12-19] MEDS ORDERED: NICOTINE 14 MG/24 HOUR PATCH TD PRN (11:30)
[2019-12-19] MEDS ORDERED: LOPERAMIDE HCL 2 MG CAPSULE PO PRN (11:30)
[2019-12-19] MEDS ORDERED: IBUPROFEN 400 MG TABLET PO PRN (11:30)
[2019-12-19] MEDS ORDERED: GLUCAGON,HUMAN RECOMBINANT 1 MG VIAL IM PRN (11:30)
[2019-12-19] MEDS ORDERED: MAG HYDROX/AL HYDROX/SIMETH ES 30 ML SUSPENSION UDCUP PO PRN (11:30)
[2019-12-19] MEDS ORDERED: GuaiFENesin/D-METHORPHAN [SUGAR-FREE] 200-20MG/10 ML SYRUP UDCUP PO PRN (11:30)
[2019-12-19] MEDS ORDERED: ALBUTEROL SULFATE HFA 90 MCG/PUFF 8 GM INHALER IH PRN (11:30)
[2019-12-19] MEDS ORDERED: PETROLATUM,WHITE 28 GM JELLY TP PRN (11:30)
[2019-12-19] MEDS ORDERED: CloNIDine HCL 0.1 MG TABLET PO PRN (11:30)
[2019-12-19] MEDS ORDERED: DOCUSATE SODIUM 100 MG CAPSULE PO PRN (11:30)
[2019-12-19] MEDS ORDERED: MAGNESIUM HYDROXIDE SUSPENSION 30 ML UDCUP PO PRN (11:30)
[2019-12-19] MEDS ORDERED: ONDANSETRON HCL 4 MG TABLET PO PRN (11:30)
[2019-12-19 11:32] LABS: GLUCOMETER DEV NAME(LOC) BV3S.; GLUCOSE,POINT OF CARE 266 MG/DL (70-110)
[2019-12-19] MEDS: INSULIN LISPRO 100 UNITS/ML SQ PRN ×3 (12:20→21:03)
[2019-12-19 16:00] VITALS: BP 137/82
[2019-12-19] MEDS: DIVALPROEX SODIUM 250 MG DR TABLET PO SCH (16:49)
[2019-12-19 17:12] LABS: GLUCOMETER DEV NAME(LOC) BV3S.; GLUCOSE,POINT OF CARE 268 MG/DL (70-110)
[2019-12-19] MEDS ORDERED: INSULIN GLARGINE,HUM.REC.ANLOG 100 UNITS/ML SQ SCH (21:00)
[2019-12-19] MEDS: OLANZapine 10 MG TABLET PO SCH (21:01)
[2019-12-19] MEDS: INSULIN GLARGINE,HUM.REC.ANLOG 100 UNITS/ML SQ SCH (21:03)
[2019-12-19 21:14] LABS: GLUCOMETER DEV NAME(LOC) BV3S.; GLUCOSE,POINT OF CARE 234 MG/DL (70-110)
[2019-12-20 06:19] VITALS: BP 132/87
[2019-12-20 06:37] LABS: GLUCOMETER DEV NAME(LOC) BV3S.; GLUCOSE,POINT OF CARE 166 MG/DL (70-110)
[2019-12-20] MEDS: MetFORMIN HCL 500 MG TABLET PO SCH ×2 (06:37→16:45)
[2019-12-20] MEDS: INSULIN LISPRO 100 UNITS/ML SQ PRN ×4 (06:39→21:01)
[2019-12-20 08:00] VITALS: BP 132/68
[2019-12-20] MEDS: DIVALPROEX SODIUM 250 MG DR TABLET PO SCH ×2 (10:21→16:45)
[2019-12-20] MEDS: GuaiFENesin SR 600 MG ER TABLET PO SCH ×2 (10:21→16:45)
[2019-12-20] MEDS: ASPIRIN 325 MG TABLET PO SCH (10:21)
[2019-12-20] MEDS: LISINOPRIL 10 MG TABLET PO SCH ×2 (10:29→16:46)
[2019-12-20] MEDS: INSULIN GLARGINE,HUM.REC.ANLOG 100 UNITS/ML SQ SCH ×2 (11:00→21:01)
[2019-12-20 12:12] LABS: GLUCOMETER DEV NAME(LOC) BV3S.; GLUCOSE,POINT OF CARE 261 MG/DL (70-110)
[2019-12-20 16:25] VITALS: BP 122/66
[2019-12-20 17:16] LABS: GLUCOMETER DEV NAME(LOC) BV3S.; GLUCOSE,POINT OF CARE 207 MG/DL (70-110)
[2019-12-20 20:46] LABS: GLUCOMETER DEV NAME(LOC) BV3S.; GLUCOSE,POINT OF CARE 219 MG/DL (70-110)
[2019-12-20] MEDS: OLANZapine 10 MG TABLET PO SCH (20:55)
[2019-12-21 06:52] LABS: GLUCOMETER DEV NAME(LOC) BV3S.; GLUCOSE,POINT OF CARE 92 MG/DL (70-110)
[2019-12-21] MEDS: MetFORMIN HCL 500 MG TABLET PO SCH ×2 (07:00→16:46)
[2019-12-21] MEDS: GuaiFENesin SR 600 MG ER TABLET PO SCH ×2 (09:16→16:47)
[2019-12-21] MEDS: DIVALPROEX SODIUM 250 MG DR TABLET PO SCH ×2 (09:16→16:47)
[2019-12-21] MEDS: ASPIRIN 325 MG TABLET PO SCH (09:16)
[2019-12-21] MEDS: MULTIVITAMINS, THERAPEUTIC TABLET PO SCH (09:16)
[2019-12-21] MEDS: LISINOPRIL 10 MG TABLET PO SCH ×2 (09:16→16:47)
[2019-12-21 09:29] VITALS: BP 132/75
[2019-12-21] MEDS: INSULIN GLARGINE,HUM.REC.ANLOG 100 UNITS/ML SQ SCH ×2 (09:39→21:55)
[2019-12-21 09:45] LABS: GLUCOMETER DEV NAME(LOC) BV3S.; GLUCOSE,POINT OF CARE 221 MG/DL (70-110)
[2019-12-21] MEDS: INSULIN LISPRO 100 UNITS/ML SQ PRN ×3 (11:25→21:54)
[2019-12-21 11:40] LABS: GLUCOMETER DEV NAME(LOC) BV3S.; GLUCOSE,POINT OF CARE 252 MG/DL (70-110)
[2019-12-21 16:14] VITALS: BP 140/85
[2019-12-21 16:32] LABS: GLUCOMETER DEV NAME(LOC) BV3S.; GLUCOSE,POINT OF CARE 196 MG/DL (70-110)
[2019-12-21] MEDS ORDERED: HYPROMELLOSE 0.5% 15 ML OPHTHALMIC SOLUTION OU PRN (18:30)
[2019-12-21 20:27] LABS: GLUCOMETER DEV NAME(LOC) BV3S.; GLUCOSE,POINT OF CARE 307 MG/DL (70-110)
[2019-12-21] MEDS: OLANZapine 10 MG TABLET PO SCH (21:00)
[2019-12-21 21:07] VITALS: BP 148/90
[2019-12-21] MEDS: ACETAMINOPHEN 325 MG TABLET PO PRN (21:08)
[2019-12-22 06:20] VITALS: BP 117/72
[2019-12-22] MEDS: MetFORMIN HCL 500 MG TABLET PO SCH ×2 (06:44→17:39)
[2019-12-22 06:58] LABS: GLUCOMETER DEV NAME(LOC) BV3S.; GLUCOSE,POINT OF CARE 132 MG/DL (70-110)
[2019-12-22 08:22] VITALS: BP 128/60
[2019-12-22] MEDS: DIVALPROEX SODIUM 250 MG DR TABLET PO SCH ×2 (09:00→17:00)
[2019-12-22] MEDS: GuaiFENesin SR 600 MG ER TABLET PO SCH ×2 (09:27→17:39)
[2019-12-22] MEDS: LISINOPRIL 10 MG TABLET PO SCH ×2 (09:27→17:39)
[2019-12-22] MEDS: MULTIVITAMINS, THERAPEUTIC TABLET PO SCH (09:27)
[2019-12-22] MEDS: ASPIRIN 325 MG TABLET PO SCH (09:27)
[2019-12-22] MEDS: INSULIN GLARGINE,HUM.REC.ANLOG 100 UNITS/ML SQ SCH ×2 (09:35→21:32)
[2019-12-22 09:38] LABS: GLUCOMETER DEV NAME(LOC) BV3S.; GLUCOSE,POINT OF CARE 113 MG/DL (70-110)
[2019-12-22 11:24] LABS: GLUCOMETER DEV NAME(LOC) BV3S.; GLUCOSE,POINT OF CARE 119 MG/DL (70-110)
[2019-12-22 16:15] VITALS: BP 120/75
[2019-12-22 16:41] LABS: GLUCOMETER DEV NAME(LOC) BV3S.; GLUCOSE,POINT OF CARE 226 MG/DL (70-110)
[2019-12-22] MEDS: INSULIN LISPRO 100 UNITS/ML SQ PRN ×2 (17:46→21:31)
[2019-12-22 20:28] LABS: GLUCOMETER DEV NAME(LOC) BV3S.; GLUCOSE,POINT OF CARE 158 MG/DL (70-110)
[2019-12-22] MEDS: OLANZapine 10 MG TABLET PO SCH (21:00)
[2019-12-23 01:16] VITALS: BP 116/68
[2019-12-23 06:30] LABS: GLUCOMETER DEV NAME(LOC) BV3S.; GLUCOSE,POINT OF CARE 141 MG/DL (70-110)
[2019-12-23] MEDS: MetFORMIN HCL 500 MG TABLET PO SCH (06:36)
[2019-12-23] MEDS: INSULIN LISPRO 100 UNITS/ML SQ PRN (06:37)
[2019-12-23] MEDS: MULTIVITAMINS, THERAPEUTIC TABLET PO SCH (08:13)
[2019-12-23] MEDS: ASPIRIN 325 MG TABLET PO SCH (08:14)
[2019-12-23] MEDS: DIVALPROEX SODIUM 250 MG DR TABLET PO SCH (08:14)
[2019-12-23] MEDS: LISINOPRIL 10 MG TABLET PO SCH (08:14)
[2019-12-23] MEDS: GuaiFENesin SR 600 MG ER TABLET PO SCH (08:14)
[2019-12-23 08:21] VITALS: BP 122/64
[2019-12-23] MEDS: INSULIN GLARGINE,HUM.REC.ANLOG 100 UNITS/ML SQ SCH (08:54)
[2019-12-23] MEDS: ACETAMINOPHEN 325 MG TABLET PO PRN (10:05)
[2019-12-23 11:18] LABS: GLUCOMETER DEV NAME(LOC) BV3S.; GLUCOSE,POINT OF CARE 121 MG/DL (70-110)
[2019-12-23] MEDS ORDERED: INSLAN SQ (11:19)
[2019-12-23] MEDS ORDERED: MULT-723 PO (11:20)
== END 2019-12-23 13:25 | disposition home or self-care (01) | DRG 750 ==
LOC: B3A 21:24
PROVIDERS: ADMIT Psychiatry & Neurology Psychiatry; ATTEND Psychiatry & Neurology Child & Adolescent Psychiatry
DX: F25.0 Schizoaffective disorder, bipolar type (principal); E11.9 Type 2 diabetes mellitus without complications; R45.851 Suicidal ideations; F19.10 Other psychoactive substance abuse, uncomplicated; E78.5 Hyperlipidemia, unspecified; I10 Essential (primary) hypertension; Z79.4 Long term (current) use of insulin; Z79.899 Other long term (current) drug therapy
CPT/HCPCS: 83036; 84439; J1815; J3535

== ENCOUNTER 2020-02-04 17:30 | Inpatient (IN) | payer MEDICAID ==
[~2020-02-04] VITALS: Ht 180.3 cm; Wt 138.5 kg
[~2020-02-04 17:30] MED LIST changes: -ASPI-629 PO; +ASPI-989 PO; +MULT-723 PO; -OMEG-135 PO
[2020-02-04] MEDS ORDERED: HALOPERIDOL 5 MG TABLET PO PRN (18:45)
[2020-02-04] MEDS ORDERED: ZOLPIDEM TARTRATE 10 MG TABLET PO PRN (18:45)
[2020-02-04 19:27] VITALS: BP 124/63
[2020-02-04] MEDS ORDERED: GLUCAGON,HUMAN RECOMBINANT 1 MG VIAL IM PRN (19:45)
[2020-02-04] MEDS: INSULIN LISPRO 100 UNITS/ML SQ PRN (21:07)
[2020-02-05 04:32] VITALS: BP 122/75
[2020-02-05 06:43] LABS: GLUCOMETER DEV NAME(LOC) BV3S.; GLUCOSE,POINT OF CARE 201 MG/DL (70-110)
[2020-02-05] MEDS: MetFORMIN HCL 500 MG TABLET PO SCH ×2 (07:00→16:43)
[2020-02-05] MEDS: INSULIN LISPRO 100 UNITS/ML SQ PRN ×2 (07:06→16:49)
[2020-02-05 07:52] LABS: BASOPHILS % (AUTO) 1.1 % (0.0-2.0); EOSINOPHILS % (AUTO) 4.5 % (1.0-6.0); HEMATOCRIT 40.3 % (41-53); HEMOGLOBIN 13.4 g/dL (13.5-17.5); LYMPHOCYTES # (AUTO) 1.1 K/uL (1.0-4.8); LYMPHOCYTES % (AUTO) 19.9 % (22.0-44.0); MEAN CORPUSCULAR HEMOGLOBIN 28.2 pg (26.0-34.0); MEAN CORPUSCULAR HGB CONC 33.3 G/dL (31.0-37.0); MEAN CORPUSCULAR VOLUME 85 fL (80-100); MONOCYTES # (AUTO) 0.8 K/uL (0.1-1.0); MONOCYTES % (AUTO) 13.8 % (2.0-9.0); NEUTROPHILS # (AUTO) 3.4 K/uL (1.8-7.7); NEUTROPHILS % (AUTO) 60.7 % (40.0-70.0); PLATELET COUNT (AUTO) 177 K/uL (150-450); RED BLOOD CELL COUNT(AUTO) 4.76 MIL/uL (4.50-5.90); RED CELL DISTRIBUTION WIDTH 13.6 % (11.5-14.5)
[2020-02-05 08:01] LABS: HEMOGLOBIN A1C 8.8 % (3.8-5.6)
[2020-02-05 08:15] VITALS: BP 132/86
[2020-02-05 08:25] LABS: ALANINE AMINOTRANSFERASE 52 U/L (12-78); ALBUMIN 3.3 g/dL (3.4-5.0); ALKALINE PHOSPHATASE 52 U/L (46-116); ANION GAP 6 mmol/L (8-16); ASPARTATE AMINOTRANSFERASE 24 U/L (15-37); BILIRUBIN,TOTAL 0.5 mg/dL (0.1-1.0); CALCIUM, TOTAL 8.3 mg/dL (8.8-10.5); CARBON DIOXIDE 29 mmol/L (22-29); CHLORIDE 101 mmol/L (98-107); CHOL/HDL RATIO 3.6 (4.2-7.3); CHOLESTEROL 183 mg/dL (131-200); CREATININE 0.97 mg/dL (0.60-1.30); FREE T4 (FREE THYROXINE) 0.99 ng/dL (0.76-1.46); GLOMERULAR FILTR. RATE CALC > 60 mL/min (>60); GLUCOSE,RANDOM 240 mg/dL (70-110); HDL CHOLESTEROL 51 mg/dL (40-60); LDL CHOL (CALC.) 112 mg/dL (0-130); POTASSIUM 4.3 mmol/L (3.5-5.1); SODIUM SERUM 136 mmol/L (136-145); THYROID STIMULATING HORMONE 2.41 uIU/mL (0.36-3.74); TOTAL PROTEIN, SERUM 6.6 g/dL (6.4-8.2); TRIGLYCERIDES 101 mg/dL (15-150); UREA NITROGEN, BLOOD 18 mg/dL (7-18)
[2020-02-05] MEDS: ASPIRIN 325 MG TABLET PO SCH (08:30)
[2020-02-05] MEDS: LISINOPRIL 10 MG TABLET PO SCH ×2 (08:30→16:43)
[2020-02-05] MEDS ORDERED: LOPERAMIDE HCL 2 MG CAPSULE PO PRN (09:30)
[2020-02-05] MEDS ORDERED: ONDANSETRON HCL 4 MG TABLET PO PRN (09:30)
[2020-02-05] MEDS ORDERED: NICOTINE 14 MG/24 HOUR PATCH TD PRN (09:30)
[2020-02-05] MEDS ORDERED: GuaiFENesin/D-METHORPHAN [SUGAR-FREE] 200-20MG/10 ML SYRUP UDCUP PO PRN (09:30)
[2020-02-05] MEDS ORDERED: PETROLATUM,WHITE 28 GM JELLY TP PRN (09:30)
[2020-02-05] MEDS ORDERED: CloNIDine HCL 0.1 MG TABLET PO PRN (09:30)
[2020-02-05] MEDS ORDERED: MAGNESIUM HYDROXIDE SUSPENSION 30 ML UDCUP PO PRN (09:30)
[2020-02-05] MEDS ORDERED: DOCUSATE SODIUM 100 MG CAPSULE PO PRN (09:30)
[2020-02-05] MEDS ORDERED: ALBUTEROL SULFATE HFA 90 MCG/PUFF 8 GM INHALER IH PRN (09:30)
[2020-02-05] MEDS: DIVALPROEX SODIUM 250 MG DR TABLET PO SCH ×2 (10:46→21:00)
[2020-02-05] MEDS: INSULIN GLARGINE,HUM.REC.ANLOG 100 UNITS/ML SQ SCH ×2 (11:08→16:50)
[2020-02-05 11:31] LABS: GLUCOMETER DEV NAME(LOC) BV3S.; GLUCOSE,POINT OF CARE 246 MG/DL (70-110)
[2020-02-05 16:04] VITALS: BP 119/68
[2020-02-05 17:03] LABS: GLUCOMETER DEV NAME(LOC) BV3S.; GLUCOSE,POINT OF CARE 247 MG/DL (70-110)
[2020-02-05] MEDS: HYPROMELLOSE 0.5% 15 ML OPHTHALMIC SOLUTION OU PRN (20:30)
[2020-02-05 20:40] VITALS: BP 138/86
[2020-02-05] MEDS: MAG HYDROX/AL HYDROX/SIMETH ES 30 ML SUSPENSION UDCUP PO PRN (20:40)
[2020-02-05] MEDS: ACETAMINOPHEN 325 MG TABLET PO PRN (20:41)
[2020-02-05] MEDS: OLANZapine 10 MG TABLET PO SCH (20:42)
[2020-02-06 06:15] LABS: GLUCOMETER DEV NAME(LOC) BV3S.; GLUCOSE,POINT OF CARE 184 MG/DL (70-110)
[2020-02-06 06:35] VITALS: BP 110/63
[2020-02-06] MEDS: MetFORMIN HCL 500 MG TABLET PO SCH ×2 (06:39→17:00)
[2020-02-06] MEDS: INSULIN LISPRO 100 UNITS/ML SQ PRN ×2 (06:40→11:40)
[2020-02-06 08:38] VITALS: BP 138/90
[2020-02-06] MEDS: DIVALPROEX SODIUM 250 MG DR TABLET PO SCH ×2 (08:56→20:58)
[2020-02-06] MEDS: ASPIRIN 325 MG TABLET PO SCH (08:56)
[2020-02-06] MEDS: LISINOPRIL 10 MG TABLET PO SCH ×2 (08:56→17:00)
[2020-02-06] MEDS: INSULIN GLARGINE,HUM.REC.ANLOG 100 UNITS/ML SQ SCH ×2 (08:59→17:00)
[2020-02-06 11:41] LABS: GLUCOMETER DEV NAME(LOC) BV3S.; GLUCOSE,POINT OF CARE 217 MG/DL (70-110)
[2020-02-06 16:24] VITALS: BP 106/60
[2020-02-06] MEDS ORDERED: HALOPERIDOL LACTATE 5 MG/ML VIAL ONE (16:57)
[2020-02-06] MEDS ORDERED: LORazepam 2 MG/ML VIAL ONE (16:57)
[2020-02-06] MEDS ORDERED: DiphenhydrAMINE HCL 50 MG/ML VIAL ONE (16:57)
[2020-02-06] MEDS ORDERED: LORazepam 2 MG/ML VIAL IM ONE (17:00)
[2020-02-06] MEDS ORDERED: DiphenhydrAMINE HCL 50 MG/ML VIAL IM ONE (17:00)
[2020-02-06] MEDS ORDERED: HALOPERIDOL LACTATE 5 MG/ML VIAL IM ONE (17:00)
[2020-02-06] MEDS: OLANZapine 10 MG TABLET PO SCH (20:58)
[2020-02-07 05:48] VITALS: BP 124/82
[2020-02-07 06:37] LABS: GLUCOMETER DEV NAME(LOC) BV3S.; GLUCOSE,POINT OF CARE 177 MG/DL (70-110)
[2020-02-07] MEDS: MetFORMIN HCL 500 MG TABLET PO SCH ×2 (06:44→16:43)
[2020-02-07] MEDS: INSULIN LISPRO 100 UNITS/ML SQ PRN ×4 (06:46→20:59)
[2020-02-07 08:14] VITALS: BP 109/68
[2020-02-07] MEDS: DIVALPROEX SODIUM 250 MG DR TABLET PO SCH ×2 (08:24→20:43)
[2020-02-07] MEDS: ASPIRIN 325 MG TABLET PO SCH (08:24)
[2020-02-07] MEDS: LISINOPRIL 10 MG TABLET PO SCH ×2 (08:24→16:43)
[2020-02-07] MEDS: INSULIN GLARGINE,HUM.REC.ANLOG 100 UNITS/ML SQ SCH ×2 (08:46→16:15)
[2020-02-07 11:23] LABS: GLUCOMETER DEV NAME(LOC) BV3S.; GLUCOSE,POINT OF CARE 267 MG/DL (70-110)
[2020-02-07] MEDS: HYPROMELLOSE 0.5% 15 ML OPHTHALMIC SOLUTION OU PRN (15:39)
[2020-02-07 16:24] VITALS: BP 130/61
[2020-02-07 17:15] LABS: GLUCOMETER DEV NAME(LOC) BV3S.; GLUCOSE,POINT OF CARE 237 MG/DL (70-110)
[2020-02-07] MEDS: OLANZapine 10 MG TABLET PO SCH (20:43)
[2020-02-07] MEDS: MAG HYDROX/AL HYDROX/SIMETH ES 30 ML SUSPENSION UDCUP PO PRN (20:46)
[2020-02-07 21:20] LABS: GLUCOMETER DEV NAME(LOC) BV3S.; GLUCOSE,POINT OF CARE 216 MG/DL (70-110)
[2020-02-08 02:03] VITALS: BP 133/81
[2020-02-08 06:20] LABS: GLUCOMETER DEV NAME(LOC) BV3S.; GLUCOSE,POINT OF CARE 223 MG/DL (70-110)
[2020-02-08] MEDS: MetFORMIN HCL 500 MG TABLET PO SCH ×2 (06:33→17:13)
[2020-02-08] MEDS: INSULIN LISPRO 100 UNITS/ML SQ PRN ×5 (06:35→21:10)
[2020-02-08 08:28] LABS: APPEARANCE,URINE CLOUDY (CLEAR); BILIRUBIN,URINE NEGATIVE (NEGATIVE); GLUCOSE, URINE (UA) >=1000 mg/dL (NEGATIVE); KETONES,URINE NEGATIVE (NEGATIVE); NITRATE,URINE NEGATIVE (NEGATIVE); OCCULT BLOOD,URINE NEGATIVE (NEGATIVE); PH,URINE 5.5 (5.0-8.0); PROTEIN,URINE NEGATIVE (NEGATIVE); UROBILINOGEN,URINE 0.2 mg/dL (<=1.0)
[2020-02-08 08:29] LABS: LEUKOCYTE ESTERASE ,URINE NEGATIVE (NEGATIVE)
[2020-02-08 08:41] LABS: AMPHET/METH SCREEN,URINE NEGATIVE (NEGATIVE); BARBITURATE SCREEN, URINE NEGATIVE (NEGATIVE); BENZODIAZEPINES SCREEN,URINE NEGATIVE (NEGATIVE); CANNABINOID SCREEN,URINE NEGATIVE (NEGATIVE); COCAINE SCREEN,URINE NEGATIVE (NEGATIVE); METHADONE SCREEN, URINE NEGATIVE (NEGATIVE); OPIATE SCREEN,URINE NEGATIVE (NEGATIVE)
[2020-02-08 08:42] LABS: PHENCYCLIDINE SCREEN,URINE NEGATIVE (NEGATIVE)
[2020-02-08 09:05] LABS: BACTERIA,URINE None Seen /HPF (None Seen); RBC,URINE None Seen /HPF (0-2); SQUAMOUS EPITHELIAL CELL,UR Rare /LPF (None Seen); WBC,URINE None Seen /HPF (0-5)
[2020-02-08] MEDS: LISINOPRIL 10 MG TABLET PO SCH ×2 (09:24→17:13)
[2020-02-08] MEDS: ASPIRIN 325 MG TABLET PO SCH (09:24)
[2020-02-08] MEDS: DIVALPROEX SODIUM 250 MG DR TABLET PO SCH ×2 (09:24→21:05)
[2020-02-08] MEDS: INSULIN GLARGINE,HUM.REC.ANLOG 100 UNITS/ML SQ SCH ×2 (09:37→17:17)
[2020-02-08 10:02] VITALS: BP 128/56
[2020-02-08 11:16] LABS: GLUCOMETER DEV NAME(LOC) BV3S.; GLUCOSE,POINT OF CARE 195 MG/DL (70-110)
[2020-02-08 16:57] VITALS: BP 130/63
[2020-02-08] MEDS: LORazepam 2 MG TABLET PO PRN (17:14)
[2020-02-08 17:39] LABS: GLUCOMETER DEV NAME(LOC) BV3S.; GLUCOSE,POINT OF CARE 233 MG/DL (70-110)
[2020-02-08] MEDS: MAG HYDROX/AL HYDROX/SIMETH ES 30 ML SUSPENSION UDCUP PO PRN (18:33)
[2020-02-08] MEDS: HYPROMELLOSE 0.5% 15 ML OPHTHALMIC SOLUTION OU PRN (18:33)
[2020-02-08] MEDS: OLANZapine 10 MG TABLET PO SCH (21:05)
[2020-02-08 21:18] LABS: GLUCOMETER DEV NAME(LOC) BV3S.; GLUCOSE,POINT OF CARE 230 MG/DL (70-110)
[2020-02-09 02:03] VITALS: BP 149/87
[2020-02-09 06:22] LABS: GLUCOMETER DEV NAME(LOC) BV3S.; GLUCOSE,POINT OF CARE 238 MG/DL (70-110)
[2020-02-09] MEDS: INSULIN LISPRO 100 UNITS/ML SQ PRN ×4 (06:27→20:57)
[2020-02-09] MEDS: MetFORMIN HCL 500 MG TABLET PO SCH ×2 (06:38→16:56)
[2020-02-09 08:38] VITALS: BP 106/68
[2020-02-09] MEDS: DIVALPROEX SODIUM 250 MG DR TABLET PO SCH ×2 (10:00→20:56)
[2020-02-09] MEDS: LISINOPRIL 10 MG TABLET PO SCH ×2 (10:00→16:56)
[2020-02-09] MEDS: ASPIRIN 325 MG TABLET PO SCH (10:01)
[2020-02-09] MEDS: INSULIN GLARGINE,HUM.REC.ANLOG 100 UNITS/ML SQ SCH ×2 (10:16→16:59)
[2020-02-09 10:25] LABS: GLUCOMETER DEV NAME(LOC) BV3S.; GLUCOSE,POINT OF CARE 242 MG/DL (70-110)
[2020-02-09] MEDS: MAG HYDROX/AL HYDROX/SIMETH ES 30 ML SUSPENSION UDCUP PO PRN (10:27)
[2020-02-09] MEDS: HYPROMELLOSE 0.5% 15 ML OPHTHALMIC SOLUTION OU PRN ×2 (10:27→15:14)
[2020-02-09 13:10] LABS: GLUCOMETER DEV NAME(LOC) BV3S.; GLUCOSE,POINT OF CARE 214 MG/DL (70-110)
[2020-02-09 16:33] VITALS: BP 113/76
[2020-02-09 17:25] LABS: GLUCOMETER DEV NAME(LOC) BV3S.; GLUCOSE,POINT OF CARE 216 MG/DL (70-110)
[2020-02-09] MEDS: OLANZapine 10 MG TABLET PO SCH (20:56)
[2020-02-09 21:20] LABS: GLUCOMETER DEV NAME(LOC) BV3S.; GLUCOSE,POINT OF CARE 191 MG/DL (70-110)
[2020-02-10] MEDS: HYPROMELLOSE 0.5% 15 ML OPHTHALMIC SOLUTION OU PRN ×2 (05:03→16:21)
[2020-02-10 05:12] VITALS: BP 101/45
[2020-02-10] MEDS: INSULIN LISPRO 100 UNITS/ML SQ PRN ×4 (06:22→21:20)
[2020-02-10 06:40] LABS: GLUCOMETER DEV NAME(LOC) BV3S.; GLUCOSE,POINT OF CARE 209 MG/DL (70-110)
[2020-02-10] MEDS: MetFORMIN HCL 500 MG TABLET PO SCH ×2 (06:56→16:57)
[2020-02-10] MEDS: ASPIRIN 325 MG TABLET PO SCH (08:42)
[2020-02-10] MEDS: LISINOPRIL 10 MG TABLET PO SCH ×2 (08:43→16:57)
[2020-02-10] MEDS: LORazepam 2 MG TABLET PO PRN ×2 (08:43→16:57)
[2020-02-10] MEDS: DIVALPROEX SODIUM 250 MG DR TABLET PO SCH ×2 (08:43→21:19)
[2020-02-10] MEDS: INSULIN GLARGINE,HUM.REC.ANLOG 100 UNITS/ML SQ SCH ×2 (08:50→17:03)
[2020-02-10 09:52] VITALS: BP 99/57
[2020-02-10 10:38] LABS: GLUCOMETER DEV NAME(LOC) BV3S.; GLUCOSE,POINT OF CARE 262 MG/DL (70-110)
[2020-02-10] MEDS: MAG HYDROX/AL HYDROX/SIMETH ES 30 ML SUSPENSION UDCUP PO PRN (16:21)
[2020-02-10 17:14] LABS: GLUCOMETER DEV NAME(LOC) BV3S.; GLUCOSE,POINT OF CARE 203 MG/DL (70-110)
[2020-02-10 17:28] VITALS: BP 118/74
[2020-02-10 20:56] LABS: GLUCOMETER DEV NAME(LOC) BV3S.; GLUCOSE,POINT OF CARE 303 MG/DL (70-110)
[2020-02-10] MEDS: OLANZapine 10 MG TABLET PO SCH (21:19)
[2020-02-11 05:20] VITALS: BP 110/63
[2020-02-11] MEDS: MetFORMIN HCL 500 MG TABLET PO SCH ×2 (07:13→17:11)
[2020-02-11] MEDS: IBUPROFEN 400 MG TABLET PO PRN (07:21)
[2020-02-11 08:16] VITALS: BP 112/68
[2020-02-11] MEDS ORDERED: COLCHICINE 0.6 MG TABLET PO ONE (09:00)
[2020-02-11] MEDS: COLCHICINE 0.6 MG TABLET PO SCH (10:07)
[2020-02-11] MEDS: DIVALPROEX SODIUM 250 MG DR TABLET PO SCH ×2 (10:09→21:01)
[2020-02-11] MEDS: ASPIRIN 325 MG TABLET PO SCH (10:09)
[2020-02-11] MEDS: LISINOPRIL 10 MG TABLET PO SCH ×2 (10:09→17:11)
[2020-02-11] MEDS: INSULIN GLARGINE,HUM.REC.ANLOG 100 UNITS/ML SQ SCH ×2 (10:32→17:15)
[2020-02-11] MEDS: INSULIN LISPRO 100 UNITS/ML SQ PRN ×3 (11:22→21:03)
[2020-02-11 11:25] LABS: GLUCOMETER DEV NAME(LOC) BV3S.; GLUCOSE,POINT OF CARE 196 MG/DL (70-110)
[2020-02-11] MEDS: ACETAMINOPHEN 325 MG TABLET PO PRN (11:29)
[2020-02-11] MEDS: MAG HYDROX/AL HYDROX/SIMETH ES 30 ML SUSPENSION UDCUP PO PRN (11:30)
[2020-02-11 16:13] VITALS: BP 136/73
[2020-02-11] MEDS: NEOMYCIN/BACITRACIN/POLYMYXIN B 30 GM OINTMENT TP SCH (17:11)
[2020-02-11] MEDS: LORazepam 2 MG TABLET PO PRN (17:12)
[2020-02-11 17:39] LABS: GLUCOMETER DEV NAME(LOC) BV3S.; GLUCOSE,POINT OF CARE 219 MG/DL (70-110)
[2020-02-11] MEDS: OLANZapine 10 MG TABLET PO SCH (21:01)
[2020-02-11 21:33] LABS: GLUCOMETER DEV NAME(LOC) BV3S.; GLUCOSE,POINT OF CARE 231 MG/DL (70-110)
[2020-02-12 00:44] VITALS: BP 134/78
[2020-02-12] MEDS: MetFORMIN HCL 500 MG TABLET PO SCH ×2 (06:34→16:39)
[2020-02-12 06:37] LABS: GLUCOMETER DEV NAME(LOC) BV3S.; GLUCOSE,POINT OF CARE 282 MG/DL (70-110)
[2020-02-12] MEDS: INSULIN LISPRO 100 UNITS/ML SQ PRN ×3 (06:43→16:47)
[2020-02-12 08:30] VITALS: BP 145/91
[2020-02-12] MEDS: LISINOPRIL 10 MG TABLET PO SCH ×2 (08:30→16:39)
[2020-02-12] MEDS: MAG HYDROX/AL HYDROX/SIMETH ES 30 ML SUSPENSION UDCUP PO PRN (08:30)
[2020-02-12] MEDS: DIVALPROEX SODIUM 250 MG DR TABLET PO SCH (08:30)
[2020-02-12] MEDS: ASPIRIN 325 MG TABLET PO SCH (08:30)
[2020-02-12] MEDS: COLCHICINE 0.6 MG TABLET PO SCH (08:30)
[2020-02-12] MEDS: IBUPROFEN 400 MG TABLET PO PRN (08:36)
[2020-02-12] MEDS: INSULIN GLARGINE,HUM.REC.ANLOG 100 UNITS/ML SQ SCH ×2 (08:56→16:47)
[2020-02-12] MEDS: NEOMYCIN/BACITRACIN/POLYMYXIN B 30 GM OINTMENT TP SCH ×2 (09:57→16:54)
[2020-02-12 16:19] VITALS: BP 114/68
[2020-02-12] MEDS ORDERED: COLC0.6T73 PO (16:20)
[2020-02-12 16:45] LABS: GLUCOMETER DEV NAME(LOC) BV3S.; GLUCOSE,POINT OF CARE 208 MG/DL (70-110)
== END 2020-02-12 19:17 | disposition home or self-care (01) | DRG 750 ==
LOC: B3A 18:42
PROVIDERS: ADMIT Psychiatry & Neurology Child & Adolescent Psychiatry; ATTEND Psychiatry & Neurology Child & Adolescent Psychiatry
DX: F25.9 Schizoaffective disorder, unspecified (principal); E11.65 Type 2 diabetes mellitus with hyperglycemia; R45.851 Suicidal ideations; E78.5 Hyperlipidemia, unspecified; F41.9 Anxiety disorder, unspecified; I10 Essential (primary) hypertension; Z59.0 Homelessness; Z79.4 Long term (current) use of insulin
CPT/HCPCS: 80307; 83036; 84439; 84443; J1200; J1630; J1815; J2060

== ENCOUNTER 2020-06-10 21:02 | Inpatient (IN) | payer MEDICAID ==
[~2020-06-10] VITALS: Ht 180.3 cm; Wt 139.3 kg
[~2020-06-10 21:02] MED LIST changes: +COLC0.6T73 PO; +DIVA-111 PO; -DIVA-76 PO; -GUAIF600 PO; -MULT-723 PO
[2020-06-11] MEDS ORDERED: PNEUMOCOCCAL VACCINE POLYVALENT 0.5 ML VIAL [PPSV23] IM ONE (10:00)
[2020-06-11 10:26] VITALS: BP 131/73
[2020-06-11] MEDS ORDERED: HALOPERIDOL 5 MG TABLET PO PRN (10:30)
[2020-06-11] MEDS ORDERED: ZOLPIDEM TARTRATE 10 MG TABLET PO PRN (10:30)
[2020-06-11] MEDS ORDERED: LORazepam 2 MG TABLET PO PRN (10:30)
[2020-06-11 10:47] LABS: GLUCOMETER DEV NAME(LOC) BV2S.; GLUCOSE,POINT OF CARE 308 MG/DL (70-110)
[2020-06-11] MEDS ORDERED: GLUCAGON,HUMAN RECOMBINANT 1 MG VIAL IM PRN (11:00)
[2020-06-11] MEDS: INSULIN LISPRO 100 UNITS/ML SQ PRN ×3 (11:49→20:28)
[2020-06-11] MEDS ORDERED: INSULIN GLARGINE,HUM.REC.ANLOG 100 UNITS/ML SQ SCH (17:00)
[2020-06-11] MEDS: DIVALPROEX SODIUM 500 MG DR TABLET PO SCH ×2 (17:00→17:05)
[2020-06-11 17:05] VITALS: BP 130/65
[2020-06-11] MEDS: LISINOPRIL 10 MG TABLET PO SCH (17:05)
[2020-06-11] MEDS: MetFORMIN HCL 500 MG TABLET PO SCH (17:05)
[2020-06-11 17:33] LABS: GLUCOMETER DEV NAME(LOC) BV2S.; GLUCOSE,POINT OF CARE 257 MG/DL (70-110)
[2020-06-11] MEDS: OLANZapine 7.5 MG TABLET PO SCH (20:26)
[2020-06-11 21:15] LABS: GLUCOMETER DEV NAME(LOC) BV2S.; GLUCOSE,POINT OF CARE 331 MG/DL (70-110)
[2020-06-11] MEDS ORDERED: LOPERAMIDE HCL 2 MG CAPSULE PO PRN (22:00)
[2020-06-11] MEDS ORDERED: MAG HYDROX/AL HYDROX/SIMETH ES 30 ML SUSPENSION UDCUP PO PRN (22:00)
[2020-06-11] MEDS ORDERED: MAGNESIUM HYDROXIDE SUSPENSION 30 ML UDCUP PO PRN (22:00)
[2020-06-12] VITALS: BP 110/61
[2020-06-12 06:21] LABS: GLUCOMETER DEV NAME(LOC) BV2S.; GLUCOSE,POINT OF CARE 111 MG/DL (70-110)
[2020-06-12] MEDS: MetFORMIN HCL 500 MG TABLET PO SCH ×2 (06:33→16:52)
[2020-06-12] MEDS: DIVALPROEX SODIUM 500 MG DR TABLET PO SCH ×2 (08:52→16:52)
[2020-06-12] MEDS: LISINOPRIL 10 MG TABLET PO SCH ×2 (08:52→16:52)
[2020-06-12] MEDS: INSULIN GLARGINE,HUM.REC.ANLOG 100 UNITS/ML SQ SCH ×2 (08:59→16:56)
[2020-06-12] MEDS ORDERED: COLCHICINE 0.6 MG TABLET PO SCH ×2 (09:00→16:00)
[2020-06-12] MEDS: ACETAMINOPHEN 325 MG TABLET PO PRN ×3 (09:00→20:41)
[2020-06-12 09:11] LABS: GLUCOMETER DEV NAME(LOC) BV2S.; GLUCOSE,POINT OF CARE 158 MG/DL (70-110)
[2020-06-12 10:01] VITALS: BP 124/72
[2020-06-12] MEDS: ASPIRIN 325 MG TABLET PO SCH (10:02)
[2020-06-12 12:04] LABS: GLUCOMETER DEV NAME(LOC) BV2S.; GLUCOSE,POINT OF CARE 190 MG/DL (70-110)
[2020-06-12] MEDS: COLCHICINE 0.6 MG TABLET PO SCH (13:58)
[2020-06-12] MEDS: INSULIN LISPRO 100 UNITS/ML SQ PRN ×2 (16:57→20:55)
[2020-06-12 17:08] VITALS: BP 117/63
[2020-06-12 18:04] LABS: GLUCOMETER DEV NAME(LOC) BV2S.; GLUCOSE,POINT OF CARE 217 MG/DL (70-110)
[2020-06-12] MEDS: OLANZapine 7.5 MG TABLET PO SCH (20:42)
[2020-06-12 21:12] LABS: GLUCOMETER DEV NAME(LOC) BV2S.; GLUCOSE,POINT OF CARE 258 MG/DL (70-110)
[2020-06-13] VITALS: BP 118/63
[2020-06-13 06:30] LABS: GLUCOMETER DEV NAME(LOC) BV2S.; GLUCOSE,POINT OF CARE 136 MG/DL (70-110)
[2020-06-13] MEDS: MetFORMIN HCL 500 MG TABLET PO SCH ×2 (06:39→16:44)
[2020-06-13] MEDS: INSULIN LISPRO 100 UNITS/ML SQ PRN ×4 (06:40→20:47)
[2020-06-13] MEDS: VALPROIC ACID 250 MG/5 ML SYRUP UDCUP PO SCH ×2 (09:00→17:00)
[2020-06-13 09:07] VITALS: BP 135/93
[2020-06-13] MEDS: COLCHICINE 0.6 MG TABLET PO SCH (09:15)
[2020-06-13] MEDS: ASPIRIN 325 MG TABLET PO SCH (09:15)
[2020-06-13] MEDS: LISINOPRIL 10 MG TABLET PO SCH ×2 (09:16→16:44)
[2020-06-13] MEDS: INSULIN GLARGINE,HUM.REC.ANLOG 100 UNITS/ML SQ SCH ×2 (09:24→19:10)
[2020-06-13 11:03] LABS: GLUCOMETER DEV NAME(LOC) BV2S.; GLUCOSE,POINT OF CARE 151 MG/DL (70-110)
[2020-06-13 16:16] VITALS: BP 120/67
[2020-06-13 16:38] LABS: GLUCOMETER DEV NAME(LOC) BV2S.; GLUCOSE,POINT OF CARE 227 MG/DL (70-110)
[2020-06-13] MEDS: OLANZapine 7.5 MG TABLET PO SCH (20:06)
[2020-06-13 20:24] LABS: GLUCOMETER DEV NAME(LOC) BV2S.; GLUCOSE,POINT OF CARE 279 MG/DL (70-110)
[2020-06-14 04:26] VITALS: BP 118/70
[2020-06-14] MEDS: INSULIN LISPRO 100 UNITS/ML SQ PRN ×2 (06:40→12:00)
[2020-06-14] MEDS: MetFORMIN HCL 500 MG TABLET PO SCH (06:51)
[2020-06-14 06:52] LABS: GLUCOMETER DEV NAME(LOC) BV2X.; GLUCOSE,POINT OF CARE 204 MG/DL (70-110)
[2020-06-14 08:29] VITALS: BP 116/58
[2020-06-14] MEDS: INSULIN GLARGINE,HUM.REC.ANLOG 100 UNITS/ML SQ SCH (09:01)
[2020-06-14] MEDS: LISINOPRIL 10 MG TABLET PO SCH (09:02)
[2020-06-14] MEDS: COLCHICINE 0.6 MG TABLET PO SCH (09:02)
[2020-06-14] MEDS: ASPIRIN 325 MG TABLET PO SCH (09:02)
[2020-06-14] MEDS: VALPROIC ACID 250 MG/5 ML SYRUP UDCUP PO SCH ×2 (09:03→09:17)
[2020-06-14 11:20] LABS: GLUCOMETER DEV NAME(LOC) BV2S.; GLUCOSE,POINT OF CARE 268 MG/DL (70-110)
[2020-06-14] MEDS ORDERED: VALP250C48 PO (15:41)
== END 2020-06-14 16:00 | disposition home or self-care (01) | DRG 750 ==
LOC: B2S 06-11 08:49
PROVIDERS: ADMIT Psychiatry & Neurology Psychiatry; ATTEND Psychiatry & Neurology Psychiatry
DX: F20.0 Paranoid schizophrenia (principal); E11.9 Type 2 diabetes mellitus without complications; E78.5 Hyperlipidemia, unspecified; I10 Essential (primary) hypertension; E78.00 Pure hypercholesterolemia, unspecified; G47.00 Insomnia, unspecified; K59.00 Constipation, unspecified; F19.10 Other psychoactive substance abuse, uncomplicated; Z72.0 Tobacco use; F41.9 Anxiety disorder, unspecified
CPT/HCPCS: J1815

== ENCOUNTER 2020-06-25 18:07 | Emergency (ER) | payer MEDICAID, OTHER ==
[~2020-06-25] VITALS: Ht 180.3 cm; Wt 139.1 kg
[~2020-06-25 18:07] MED LIST changes: -DIVA-111 PO; +VALP250C48 PO
[2020-06-25 19:33] VITALS: BP 158/82
== END 2020-06-25 19:28 | disposition home or self-care (01) ==
LOC: EMS 18:08
DX: E11.9 Type 2 diabetes mellitus without complications (principal); F32.9 Major depressive disorder, single episode, unspecified; F20.9 Schizophrenia, unspecified; F17.210 Nicotine dependence, cigarettes, uncomplicated; Z76.0 Encounter for issue of repeat prescription; Z79.84 Long term (current) use of oral hypoglycemic drugs; Z79.4 Long term (current) use of insulin
CPT/HCPCS: 99283; Z7502